=== PATIENT | male | born 1945 | race Caucasian/White ===

== ENCOUNTER 2017-06-29 10:47 | Inpatient (IN) | payer MEDICARE ==
[2017-06-29] MEDS ORDERED: ONDANSETRON 4 MG/2 ML VIAL IVP STA (11:29)
[2017-06-29] MEDS ORDERED: SODIUM CHLORIDE 0.9% 1,000 ML IV STA (11:29)
[2017-06-29] MEDS ORDERED: HYDROmorphone 1 MG/ML 1 ML SYRINGE IVP STA ×2 (11:29→14:47)
[2017-06-29] MEDS ORDERED: PANTOPRAZOLE 40 MG/10 ML VIAL IVP STA (11:29)
[2017-06-29 12:13] LABS: Basophils % (A) 0 %; CH 32.4; CHCM 35.9; Eosinophils # (A) 0.1 k/uL (0-0.7); Eosinophils % (A) 2 %; HCT 35.7 % (39.0-53.0); HDW 3.22; HGB 12.5 gm/dL (13.0-17.5); Luc % (Auto) 2; Lymphocytes # (A) 1.5 k/uL (1.0-4.8); Lymphocytes % (A) 18 %; MCH 31.8 pg (25.0-35.0); MCV 90.7 fL (80.0-100.0); Mean Platelet Volume 7.9; Monocytes # (A) 0.5 k/uL (0-1.0); Monocytes % (A) 6 %; Neutrophils # (A) 6.1 k/uL (1.3-7.7); Neutrophils % (A) 73 %; RBC 3.94 m/uL (4.30-5.90); RDW 12.6 % (11.5-15.5); WBC 8.4 k/uL (3.8-10.6); WBC (Perox) 8.33
[2017-06-29 12:16] LABS: ALT 200 U/L (21-72); AST 354 U/L (17-59); Alkaline Phosphatase 384 U/L (38-126); Amylase <30 U/L (30-110); Anion Gap 11 mmol/L; Blood Urea Nitrogen 19 mg/dL (9-20); Calcium 9.6 mg/dL (8.4-10.2); Carbon Dioxide 24 mmol/L (22-30); Chloride 107 mmol/L (98-107); Glucose 128 mg/dL (74-99); Non-African American GFR(MDRD) >60 (>60 ml/min/1.73 sqM); Sodium 142 mmol/L (137-145); Total Bilirubin 1.7 mg/dL (0.2-1.3); Total Protein 6.4 g/dL (6.3-8.2)
[2017-06-29 12:31] LABS: Creatine Kinase 28 U/L (55-170)
[2017-06-29 12:42] LABS: Partial Thromboplastin Time 21.8 sec (22.0-30.0); Prothrombin Time 10.6 sec (9.0-12.0)
[2017-06-29 12:44] LABS: Creatine Kinase MB 0.3 ng/mL (0.0-2.4); Troponin I <0.012 ng/mL (0.000-0.034)
--- NOTE | 2017-06-29 13:19 | XR ---
EXAMINATION TYPE: XR abdomen acute w cxr DATE OF EXAM: 06/29/2017 COMPARISON: NONE HISTORY: Pain TECHNIQUE: Single view of the chest and 2 views of the abdomen are submitted. FINDINGS: Single view of the chest fails demonstrate evidence for acute pulmonary disease. There is no evidence for pneumoperitoneum. The bowel gas pattern is unremarkable as there is air throughout nondilated small and large bowel. No sizeable air fluid levels.No mass effects are seen. No unusual calcifications. IMPRESSION: 1. Unremarkable study.
--- NOTE | 2017-06-29 13:53 | ED ---
Abdominal Pain HPI - General Chief Complaint: Abdominal Pain Stated Complaint: epigastric pain x 2 days Time Seen by Provider: 06/29/17 11:24 Source: patient Mode of arrival: ambulatory Limitations: no limitations - History of Present Illness Initial Comments: This 71-year-old white male presents complaining of abdominal pain which is in the midepigastric region and will radiate to the bilateral upper quadrants. It is been intermittent over the past 3 days. It is been associated with some nausea. He denies any fevers or chills. He denies any pain in his chest or shortness of breath. He denies any previous gallbladder problems. He does not drink alcohol and denies any previous pancreatitis. He states that the pain is fairly severe in nature. It seems to come on after eating. No other complaints or modifying factors. - Related Data Home Medications Medication Instructions Recorded Confirmed Aspirin [Adult Low Dose Aspirin EC] 81 mg PO HS 06/29/17 06/29/17 Atenolol 25 mg PO HS 06/29/17 06/29/17 Atorvastatin [Lipitor] 80 mg PO HS 06/29/17 06/29/17 Elviteg/Clare/Emtric/Tenofo Ala 1 tab PO HS 06/29/17 06/29/17 [Genvoya Tablet] Omeprazole 20 mg PO HS 06/29/17 06/29/17 PARoxetine [Paxil] 20 mg PO HS 06/29/17 06/29/17 amLODIPine [Norvasc] 5 mg PO HS 06/29/17 06/29/17 diphenhydrAMINE HCL [Benadryl] 25 mg PO HS PRN 06/29/17 06/29/17 Allergies Allergy/AdvReac Type Severity Reaction Status Date / Time No Known Allergies Allergy Verified 06/29/17 11:48 Review of Systems ROS Statement: Those systems with pertinent positive or pertinent negative responses have been documented in the HPI. ROS Other: All systems not noted in ROS Statement are negative. Past Medical History Past Medical History: Hyperlipidemia, Hypertension, Myocardial Infarction ([place]) Additional Past Medical History / Comment(s): AIDS Past Surgical History: Coronary Bypass/CABG, Heart Catheterization, Heart Catheterization With Stent, Prostate Surgery, Tonsillectomy Additional Past Surgical History / Comment(s): vasectomy Past Psychological History: Depression Smoking Status: Never smoker Past Alcohol Use History: None Reported Past Drug Use History: None Reported General Exam - General Exam Comments Initial Comments: GENERAL: The patient is well nourished and well hydrated. VITAL SIGNS: Heart rate, blood pressure, respiratory rate reviewed as recorded in nurse's notes. EYES: Pupils are round and reactive. Extraocular movements are intact. No conjunctival / lid redness or swelling. ENT: No external evidence of injury, swelling, or ecchymosis. Airway is patent. Throat is clear. NECK: Nontender. No swelling or evidence of injury. No subcutaneous emphysema. Trachea is midline. No thyroid mass. HEART: Regular rate and rhythm. Good peripheral pulses. LUNGS/CHEST: Breath sounds clear and equal bilaterally. No rales, rhonchi, or wheezes. No ecchymosis, subcutaneous emphysema, or tenderness. ABDOMEN: There is some tenderness present in the midepigastric region of the abdomen. No palpable masses or organomegaly. No peritoneal signs. No abdominal wall swelling or ecchymosis. EXTREMITIES: No extremity tenderness. Normal muscle tone and function. No thoracolumbar tenderness. NEUROLOGIC: Sensation is grossly intact. Cranial nerve exam reveals face is symmetrical, tongue is midline, speech is clear. SKIN: No abrasions or ecchymosis is noted. No induration or masses noted. PSYCHIATRIC: Alert and oriented. Appropriate behavior and judgment. Limitations: no limitations Course Vital Signs 06/29/17 06/29/17 06/29/17 11:04 12:05 13:00 Temperature 96.8 F L Pulse Rate 61 52 L 57 L Respiratory 17 18 18 Rate Blood Pressure 136/75 175/92 162/88 O2 Sat by Pulse 97 97 Oximetry 06/29/17 06/29/17 06/29/17 14:00 15:00 16:00 Temperature Pulse Rate 55 L 77 57 L Respiratory 18 18 20 Rate Blood Pressure 182/87 159/84 158/97 O2 Sat by Pulse 97 97 97 Oximetry Medical Decision Making - Medical Decision Making The patient was seen and examined. All diagnostics were reviewed. The EKG shows a sinus bradycardia at a rate of 53. There is no acute ST-T wave changes identified. The IA interval is 162, QRS duration is 102, and the QTc interval is 412. The patient had a x-ray of the chest and abdomen and this does not show any acute processes. The laboratory shows significant elevation of the liver function studies. He receives IV Dilaudid and Zofran for pain and nausea and is much improved on recheck. The ultrasound of the abdomen does feel significant gallbladder sludge as well as some thickening of the gallbladder wall consistent with cholecystitis. The patient's pain does come back significantly and he receives additional Dilaudid with control. It is felt as though he would require admission to the hospital for further surgical evaluation and treatment. The case is discussed with Dr. Boykin and she is agreeable with admission. - Lab Data Result diagrams: 06/29/17 11:55 06/29/17 11:55 Lab Results 06/29/17 06/29/17 06/29/17 Range/Units 11:55 11:55 11:55 WBC 8.4 (3.8-10.6) k/uL RBC 3.94 L (4.30-5.90) m/uL Hgb 12.5 L (13.0-17.5) gm/dL Hct 35.7 L (39.0-53.0) % MCV 90.7 (80.0-100.0) fL MCH 31.8 (25.0-35.0) pg MCHC 35.0 (31.0-37.0) g/dL RDW 12.6 (11.5-15.5) % Plt Count 177 (150-450) k/uL Neutrophils % 73 % Lymphocytes % 18 % Monocytes % 6 % Eosinophils % 2 % Basophils % 0 % Neutrophils # 6.1 (1.3-7.7) k/uL Lymphocytes # 1.5 (1.0-4.8) k/uL Monocytes # 0.5 (0-1.0) k/uL Eosinophils # 0.1 (0-0.7) k/uL Basophils # 0.0 (0-0.2) k/uL PT (9.0-12.0) sec INR (<1.2) APTT (22.0-30.0) sec Sodium 142 (137-145) mmol/L Potassium 4.0 (3.5-5.1) mmol/L Chloride 107 (98-107) mmol/L Carbon Dioxide 24 (22-30) mmol/L Anion Gap 11 mmol/L BUN 19 (9-20) mg/dL Creatinine 1.16 (0.66-1.25) mg/dL Est GFR (MDRD) Af Amer >60 (>60 ml/min/1.73 sqM) Est GFR (MDRD) Non-Af >60 (>60 ml/min/1.73 sqM) Glucose 128 H (74-99) mg/dL Plasma Lactic Acid Pierre (0.7-2.0) mmol/L Calcium 9.6 (8.4-10.2) mg/dL Total Bilirubin 1.7 H (0.2-1.3) mg/dL AST 354 H (17-59) U/L ALT 200 H (21-72) U/L Alkaline Phosphatase 384 H (38-126) U/L Total Creatine Kinase 28 L (55-170) U/L CK-MB (CK-2) 0.3 (0.0-2.4) ng/mL CK-MB (CK-2) Rel Index 1.1 Troponin I <0.012 (0.000-0.034) ng/mL Total Protein 6.4 (6.3-8.2) g/dL Albumin 3.7 (3.5-5.0) g/dL Amylase <30 L (30-110) U/L Lipase 110 (23-300) U/L Blood Type Blood Type Recheck Antibody Screen Spec Expiration Date 06/29/17 06/29/17 06/29/17 Range/Units 11:55 11:55 11:55 WBC (3.8-10.6) k/uL RBC (4.30-5.90) m/uL Hgb (13.0-17.5) gm/dL Hct (39.0-53.0) % MCV (80.0-100.0) fL MCH (25.0-35.0) pg MCHC (31.0-37.0) g/dL RDW (11.5-15.5) % Plt Count (150-450) k/uL Neutrophils % % Lymphocytes % % Monocytes % % Eosinophils % % Basophils % % Neutrophils # (1.3-7.7) k/uL Lymphocytes # (1.0-4.8) k/uL Monocytes # (0-1.0) k/uL Eosinophils # (0-0.7) k/uL Basophils # (0-0.2) k/uL PT 10.6 (9.0-12.0) sec INR 1.0 (<1.2) APTT 21.8 L (22.0-30.0) sec Sodium (137-145) mmol/L Potassium (3.5-5.1) mmol/L Chloride (98-107) mmol/L Carbon Dioxide (22-30) mmol/L Anion Gap mmol/L BUN (9-20) mg/dL Creatinine (0.66-1.25) mg/dL Est GFR (MDRD) Af Amer (>60 ml/min/1.73 sqM) Est GFR (MDRD) Non-Af (>60 ml/min/1.73 sqM) Glucose (74-99) mg/dL Plasma Lactic Acid Pierre 1.2 (0.7-2.0) mmol/L Calcium (8.4-10.2) mg/dL Total Bilirubin (0.2-1.3) mg/dL AST (17-59) U/L ALT (21-72) U/L Alkaline Phosphatase (38-126) U/L Total Creatine Kinase (55-170) U/L CK-MB (CK-2) (0.0-2.4) ng/mL CK-MB (CK-2) Rel Index Troponin I (0.000-0.034) ng/mL Total Protein (6.3-8.2) g/dL Albumin (3.5-5.0) g/dL Amylase (30-110) U/L Lipase (23-300) U/L Blood Type A Positive Blood Type Recheck A Pos Antibody Screen NEGATIVE Spec Expiration Date 07/02/20172354 Disposition Clinical Impression: Abdominal pain, Nausea, Transaminitis, Acute cholecystitis, Thickening of wall of gallbladder, Gallbladder sludge, Hypertension, Anemia Disposition: ADMITTED IP TO THIS [facility] Condition: Fair Time of Disposition: 16:32 Decision Date: 06/29/17 Decision Time: 16:32
--- NOTE | 2017-06-29 15:25 | US ---
EXAMINATION TYPE: US gallbladder DATE OF EXAM: 06/29/2017 COMPARISON: NONE CLINICAL HISTORY: Pain. EC patient with epigastric pain after meals EXAM MEASUREMENTS: Liver Length: 15.8 cm Gallbladder Wall: 0.29 cm CBD: 0.55 cm Right Kidney: 11.4 x 5.4 x 5.2 cm Pancreas: hyperechoic Liver: no masses seen Gallbladder: nonmobile sludge in neck and mid; wall thickness at upper limits of normal Evidence for sonographic Acevedo's sign: tender here CBD: wnl Right Kidney: No hydronephrosis or masses seen There is no ascites. IMPRESSION: Tumefactive sludge within the gallbladder, gallbladder appears somewhat hydropic with bor derline wall thickness, correlate for cholecystitis
[2017-06-29] MEDS ORDERED: AMPICILLIN-SULBACTAM 3 GM in SODIUM CHLORIDE 0.9% 100 ML IVPB STA (16:00)
[2017-06-29] MEDS ORDERED: NALOXONE 0.4 MG/ML 1 ML VIAL IV PRN (16:23)
[2017-06-29] MEDS ORDERED: diphenhydrAMINE 25 MG CAP PO PRN (16:29)
[2017-06-29 16:51] LABS: Appearance,Urine Clear (Clear); Bacteria,Urine Rare /hpf; Bilirubin,Urine Negative (Negative); Glucose,Urine (UA) Trace (Negative); Ketones,Urine Negative (Negative); Leukocyte Esterase,Urine Trace (Negative); Nitrite,Urine Negative (Negative); Particle Count 1066; Protein,Urine Negative (Negative); RBC,Urine 1 /hpf (0-5); Specific Gravity,Urine 1.011 (1.001-1.035); UA Billing (MACRO vs. MICRO) MICRO; Urobilinogen,Urine <2.0 mg/dL (<2.0); WBC,Urine 5 /hpf (0-5)
[2017-06-29] MEDS: HYDROmorphone 1 MG/ML 1 ML SYRINGE IV PRN ×2 (17:28→20:16)
[2017-06-29] MEDS: HYDROcodone/APAP 5-325MG 1 EACH TAB PO PRN (19:07)
[2017-06-29 20:06] VITALS: BMI 29.5
[2017-06-29] MEDS: ASPIRIN 81 MG CHEW PO SCH (20:11)
[2017-06-29] MEDS: ATENOLOL 25 MG TAB PO SCH (20:11)
[2017-06-29] MEDS: amLODIPine 5 MG TAB PO SCH (20:11)
[2017-06-29] MEDS: ATORVASTATIN 80 MG TAB PO SCH (20:11)
[2017-06-29] MEDS: PARoxetine 20 MG TAB PO SCH (20:11)
[2017-06-30] MEDS: HYDROmorphone 1 MG/ML 1 ML SYRINGE IV PRN ×3 (00:06→08:20)
[2017-06-30] MEDS: AMPICILLIN-SULBACTAM 3 GM in SODIUM CHLORIDE 0.9% 100 ML IVPB SCH ×5 (00:07→21:56)
[2017-06-30 07:39] LABS: Basophils % (A) 0 %; CH 31.9; CHCM 34.4; Eosinophils # (A) 0.1 k/uL (0-0.7); Eosinophils % (A) 2 %; HCT 35.8 % (39.0-53.0); HDW 3.21; HGB 12.5 gm/dL (13.0-17.5); Luc # (Auto) 0.14; Luc % (Auto) 2; Lymphocytes # (A) 1.1 k/uL (1.0-4.8); Lymphocytes % (A) 16 %; MCH 32.4 pg (25.0-35.0); MCHC 34.9 g/dL (31.0-37.0); MCV 93.1 fL (80.0-100.0); Mean Platelet Volume 7.7; Monocytes # (A) 0.5 k/uL (0-1.0); Monocytes % (A) 7 %; Neutrophils % (A) 73 %; RBC 3.85 m/uL (4.30-5.90); RDW 12.6 % (11.5-15.5); WBC 6.9 k/uL (3.8-10.6); WBC (Perox) 7.27
[2017-06-30 07:47] LABS: ALT 204 U/L (21-72); AST 147 U/L (17-59); Alkaline Phosphatase 431 U/L (38-126); Anion Gap 11 mmol/L; Bilirubin, Delta 1.6 mg/dL (0.0-0.2); Blood Urea Nitrogen 10 mg/dL (9-20); Calcium 8.9 mg/dL (8.4-10.2); Carbon Dioxide 22 mmol/L (22-30); Chloride 108 mmol/L (98-107); Glucose 110 mg/dL (74-99); Non-African American GFR(MDRD) >60 (>60 ml/min/1.73 sqM); Potassium 4.1 mmol/L (3.5-5.1); Sodium 141 mmol/L (137-145); Total Bilirubin 3.6 mg/dL (0.2-1.3); Total Protein 6.2 g/dL (6.3-8.2)
[2017-06-30] MEDS: ENOXAPARIN 40 MG/0.4 ML SYRINGE SQ SCH (08:18)
[2017-06-30] MEDS: PANTOPRAZOLE 40 MG/10 ML VIAL IV SCH (08:21)
--- NOTE | 2017-06-30 10:25 | P.GSHP ---
<Meghana Tan - Last Filed: 06/30/17 11:27> History of Present Illness H&P Date: 06/30/17 Chief Complaint: epigastric pain 71-year-old gentleman who presented on the day of admission to the emergency room to be evaluated for a chief complaint of developing mid epigastric pain radiating to the bilateral upper quadrants onset 3 days prior patient stated he noted the symptoms to occur after eating a high-fat diet on Wednesday shortly after eating developed the discomfort the pain continued to persist. Patient stated he did feel nauseated did not vomit. Patient stated the pain was fairly severe in nature. It did seem to come on more intensely after eating a high- fat diet. Patient denies any fever chills. Patient denied any prior episodes. Patient states he does not drink alcohol. gives no history of prior pancreatitis. Patient states that he is recuperating from prostate cancer June 08 at [facility] in [place] did undergo a prostatectomy. Postop has had episodes of leaking urine. Additionally patient states he was diagnosed in 1996 HIV which has been in remission and is being [facility] Dr[facility] Briscoe currently resting in bed states he just received IV pain medication which has been effective for pain control patient reports no change in bowel habits no loose stool no constipation. The patient did undergo abdominal ultrasound showed significant gallbladder sludge as well as thickening of the gallbladder wall consistent with cholecystitis. The labs studies were elevated AST 147, on admission it was 354. The ALT 204 this morning 200 on admission alk phos elevated at 431 total bili 3.6 is up this morning. Lipase 110. Amylase less than 30. Patient does give a history of coronary artery disease in 1999 underwent coronary artery bypass grafting. Patient states he has not been experiencing any chest pain any shortness of breath he is denying. - Review of Systems Comment: Intervention unremarkable except as mentioned in the present illness Past Medical History Past Medical History: Hyperlipidemia, Hypertension, Myocardial Infarction ([place]) Additional Past Medical History / Comment(s): AIDS Last Myocardial Infarction Date:: 1999 History of Any Multi-Drug Resistant Organisms: None Reported Past Surgical History: Coronary Bypass/CABG, Heart Catheterization, Heart Catheterization With Stent, Prostate Surgery, Tonsillectomy Additional Past Surgical History / Comment(s): vasectomy Date of Last Stent Placement:: none Past Psychological History: Depression Smoking Status: Never smoker Past Alcohol Use History: None Reported Past Drug Use History: None Reported Medications and Allergies Home Medications Medication Instructions Recorded Confirmed Type Aspirin [Adult Low Dose Aspirin EC] 81 mg PO HS 06/29/17 06/29/17 History Atenolol 25 mg PO HS 06/29/17 06/29/17 History Atorvastatin [Lipitor] 80 mg PO HS 06/29/17 06/29/17 History Elviteg/Clare/Emtric/Tenofo Ala 1 tab PO HS 06/29/17 06/29/17 History [Genvoya Tablet] Omeprazole 20 mg PO HS 06/29/17 06/29/17 History PARoxetine [Paxil] 20 mg PO HS 06/29/17 06/29/17 History amLODIPine [Norvasc] 5 mg PO HS 06/29/17 06/29/17 History diphenhydrAMINE HCL [Benadryl] 25 mg PO HS PRN 06/29/17 06/29/17 History Allergies Allergy/AdvReac Type Severity Reaction Status Date / Time No Known Allergies Allergy Verified 06/29/17 11:48 Surgical - Exam Vital Signs Temp Pulse Resp BP Pulse Ox 96.8 F L 61 17 136/75 97 06/29/17 11:04 06/29/17 11:04 06/29/17 11:04 06/29/17 11:04 06/29/17 11:04 GENERAL APPEARANCE: 71-year-old male patient is alert, oriented, in no acute distress. VITAL SIGNS: Reviewed HEENT: Head is normocephalic and atraumatic. Pupils are equal and reactive. The nares are patent. Oropharynx is clear without lesions. NECK: Supple without lymphadenopathy. Traches midline. HEART: S1, S2. Regular rate and rhythm. Denying chest pain LUNGS: No crackles or wheezes are heard. Adequate air entry ABDOMEN: Soft, diffuse tenderness across the upper abdominal wall nondistended with good bowel sounds. No peritoneal signs. No palpable organomegaly or masses. Reports no nausea vomiting EXTREMITIES: Normal skin color and turgor. No cyanosis, rash, ulceration, clubbing or edema. Radial pedal pulses are 2/4 bilaterally. NEUROLOGICAL: No focal deficits. Strength and sensation are grossly intact. Results - Labs 06/30/17 06:49 06/30/17 06:47 Abnormal Lab Results - Last 24 Hours (Table) 06/29/17 06/29/17 06/29/17 Range/Units 11:55 11:55 11:55 RBC 3.94 L (4.30-5.90) m/uL Hgb 12.5 L (13.0-17.5) gm/dL Hct 35.7 L (39.0-53.0) % APTT (22.0-30.0) sec Chloride (98-107) mmol/L Glucose 128 H (74-99) mg/dL Total Bilirubin 1.7 H (0.2-1.3) mg/dL Conjugated Bilirubin (0.0-0.3) mg/dL Delta Bilirubin (0.0-0.2) mg/dL AST 354 H (17-59) U/L ALT 200 H (21-72) U/L Alkaline Phosphatase 384 H (38-126) U/L Total Creatine Kinase 28 L (55-170) U/L Total Protein (6.3-8.2) g/dL Amylase <30 L (30-110) U/L Urine Glucose (UA) (Negative) Ur Leukocyte Esterase (Negative) Urine Bacteria (None) /hpf Urine Yeast (Budding) (None) /hpf 06/29/17 06/29/17 06/30/17 Range/Units 11:55 16:44 06:47 RBC (4.30-5.90) m/uL Hgb (13.0-17.5) gm/dL Hct (39.0-53.0) % APTT 21.8 L (22.0-30.0) sec Chloride 108 H (98-107) mmol/L Glucose 110 H (74-99) mg/dL Total Bilirubin 3.6 H (0.2-1.3) mg/dL Conjugated Bilirubin 1.1 H (0.0-0.3) mg/dL Delta Bilirubin 1.6 H (0.0-0.2) mg/dL AST 147 H (17-59) U/L ALT 204 H (21-72) U/L Alkaline Phosphatase 431 H (38-126) U/L Total Creatine Kinase (55-170) U/L Total Protein 6.2 L (6.3-8.2) g/dL Amylase (30-110) U/L Urine Glucose (UA) Trace H (Negative) Ur Leukocyte Esterase Trace H (Negative) Urine Bacteria Rare H (None) /hpf Urine Yeast (Budding) Occasional H (None) /hpf 06/30/17 Range/Units 06:49 RBC 3.85 L (4.30-5.90) m/uL Hgb 12.5 L (13.0-17.5) gm/dL Hct 35.8 L (39.0-53.0) % APTT (22.0-30.0) sec Chloride (98-107) mmol/L Glucose (74-99) mg/dL Total Bilirubin (0.2-1.3) mg/dL Conjugated Bilirubin (0.0-0.3) mg/dL Delta Bilirubin (0.0-0.2) mg/dL AST (17-59) U/L ALT (21-72) U/L Alkaline Phosphatase (38-126) U/L Total Creatine Kinase (55-170) U/L Total Protein (6.3-8.2) g/dL Amylase (30-110) U/L Urine Glucose (UA) (Negative) Ur Leukocyte Esterase (Negative) Urine Bacteria (None) /hpf Urine Yeast (Budding) (None) /hpf Diabetes panel 06/29/17 06/30/17 Range/Units 11:55 06:47 Sodium 142 141 (137-145) mmol/L Potassium 4.0 4.1 (3.5-5.1) mmol/L Chloride 107 108 H (98-107) mmol/L Carbon Dioxide 24 22 (22-30) mmol/L BUN 19 10 (9-20) mg/dL Creatinine 1.16 0.90 (0.66-1.25) mg/dL Glucose 128 H 110 H (74-99) mg/dL Calcium 9.6 8.9 (8.4-10.2) mg/dL AST 354 H 147 H (17-59) U/L ALT 200 H 204 H (21-72) U/L Alkaline Phosphatase 384 H 431 H (38-126) U/L Total Protein 6.4 6.2 L (6.3-8.2) g/dL Albumin 3.7 3.5 (3.5-5.0) g/dL Calcium panel 06/29/17 06/30/17 Range/Units 11:55 06:47 Calcium 9.6 8.9 (8.4-10.2) mg/dL Albumin 3.7 3.5 (3.5-5.0) g/dL Pituitary panel 06/29/17 06/30/17 Range/Units 11:55 06:47 Sodium 142 141 (137-145) mmol/L Potassium 4.0 4.1 (3.5-5.1) mmol/L Chloride 107 108 H (98-107) mmol/L Carbon Dioxide 24 22 (22-30) mmol/L BUN 19 10 (9-20) mg/dL Creatinine 1.16 0.90 (0.66-1.25) mg/dL Glucose 128 H 110 H (74-99) mg/dL Calcium 9.6 8.9 (8.4-10.2) mg/dL Adrenal panel 06/29/17 06/30/17 Range/Units 11:55 06:47 Sodium 142 141 (137-145) mmol/L Potassium 4.0 4.1 (3.5-5.1) mmol/L Chloride 107 108 H (98-107) mmol/L Carbon Dioxide 24 22 (22-30) mmol/L BUN 19 10 (9-20) mg/dL Creatinine 1.16 0.90 (0.66-1.25) mg/dL Glucose 128 H 110 H (74-99) mg/dL Calcium 9.6 8.9 (8.4-10.2) mg/dL Total Bilirubin 1.7 H 3.6 H (0.2-1.3) mg/dL AST 354 H 147 H (17-59) U/L ALT 200 H 204 H (21-72) U/L Alkaline Phosphatase 384 H 431 H (38-126) U/L Total Protein 6.4 6.2 L (6.3-8.2) g/dL Albumin 3.7 3.5 (3.5-5.0) g/dL Assessment and Plan Plan: Impression Present on admission abdominal pain midepigastric radiating to the bilateral upper quadrants suspect due to acute cholecystitis Ultrasound of the abdomen shows gallbladder wall thickening gallbladder sludge Elevated transaminitis elevated AST, ALT, and total bilirubin History of coronary artery disease prior coronary artery bypass grafting 1999 recent prostatectomy for prostate cancer done on June 08 history of HIV in remission Plan Pain control NPO for planned ERCP at 1:00 today per GIs recommendations family updated on plan Resume home meds as appropriate IV fluid for hydration DVT and GI prophylaxis hold Lovenox until seen by GI service Further recommendations pending The above impression and plan of care have been discussed and directed by signing physician. Meghana Tan nurse practitioner acting as scribe for signing physician. <Victorina Boykin N - Last Filed: 06/30/17 17:37> Surgical - Exam Vital Signs Temp Pulse Resp BP Pulse Ox 96.8 F L 61 17 136/75 97 06/29/17 11:04 06/29/17 11:04 06/29/17 11:04 06/29/17 11:04 06/29/17 11:04 Results - Labs 06/30/17 06:49 06/30/17 06:47 Abnormal Lab Results - Last 24 Hours (Table) 06/30/17 06/30/17 Range/Units 06:47 06:49 RBC 3.85 L (4.30-5.90) m/uL Hgb 12.5 L (13.0-17.5) gm/dL Hct 35.8 L (39.0-53.0) % Chloride 108 H (98-107) mmol/L Glucose 110 H (74-99) mg/dL Total Bilirubin 3.6 H (0.2-1.3) mg/dL Conjugated Bilirubin 1.1 H (0.0-0.3) mg/dL Delta Bilirubin 1.6 H (0.0-0.2) mg/dL AST 147 H (17-59) U/L ALT 204 H (21-72) U/L Alkaline Phosphatase 431 H (38-126) U/L Total Protein 6.2 L (6.3-8.2) g/dL Diabetes panel 06/30/17 Range/Units 06:47 Sodium 141 (137-145) mmol/L Potassium 4.1 (3.5-5.1) mmol/L Chloride 108 H (98-107) mmol/L Carbon Dioxide 22 (22-30) mmol/L BUN 10 (9-20) mg/dL Creatinine 0.90 (0.66-1.25) mg/dL Glucose 110 H (74-99) mg/dL Calcium 8.9 (8.4-10.2) mg/dL AST 147 H (17-59) U/L ALT 204 H (21-72) U/L Alkaline Phosphatase 431 H (38-126) U/L Total Protein 6.2 L (6.3-8.2) g/dL Albumin 3.5 (3.5-5.0) g/dL Calcium panel 06/30/17 Range/Units 06:47 Calcium 8.9 (8.4-10.2) mg/dL Albumin 3.5 (3.5-5.0) g/dL Pituitary panel 06/30/17 Range/Units 06:47 Sodium 141 (137-145) mmol/L Potassium 4.1 (3.5-5.1) mmol/L Chloride 108 H (98-107) mmol/L Carbon Dioxide 22 (22-30) mmol/L BUN 10 (9-20) mg/dL Creatinine 0.90 (0.66-1.25) mg/dL Glucose 110 H (74-99) mg/dL Calcium 8.9 (8.4-10.2) mg/dL Adrenal panel 06/30/17 Range/Units 06:47 Sodium 141 (137-145) mmol/L Potassium 4.1 (3.5-5.1) mmol/L Chloride 108 H (98-107) mmol/L Carbon Dioxide 22 (22-30) mmol/L BUN 10 (9-20) mg/dL Creatinine 0.90 (0.66-1.25) mg/dL Glucose 110 H (74-99) mg/dL Calcium 8.9 (8.4-10.2) mg/dL Total Bilirubin 3.6 H (0.2-1.3) mg/dL AST 147 H (17-59) U/L ALT 204 H (21-72) U/L Alkaline Phosphatase 431 H (38-126) U/L Total Protein 6.2 L (6.3-8.2) g/dL Albumin 3.5 (3.5-5.0) g/dL Assessment and Plan Plan: Patient seen and evaluated alongside [employer]. Patient had been scheduled for an ERCP regarding elevated total bilirubin levels including liver enzymes. Chemistries highly consistent with choledocholithiasis. Will likely need inpatient cholecystectomy. I did review with the family that I will be unavailable starting tomorrow. Hope surgical to continue his care in my absence.
--- NOTE | 2017-06-30 11:10 | P.CONS ---
History of Present Illness - Reason for Consult Consult date: 06/30/17 Elevated liver enzymes Requesting physician: Victorina Boykin - History of Present Illness 71-year-old gentleman admitted with acute epigastric pain upper abdomen 3 days exacerbated with meals. Past medical history of HIV (1996), CT, CAD/CABG, hyperlipidemia, and hypertension. Consultation requested for elevated liver enzymes. Admission white count 8.4. Hemoglobin 12.5. INR 1.0. Platelet 177. Ultrasound abdomen tumefactive sludge hydropic borderline wall thickness 0.3 cm. CBD 0.5 cm. No masses seen in the liver. No intrahepatic biliary dilatation mentioned. No ascites. Total bilirubin 1.7 increased to 3.6. Conjugated 1.1. AST 354 presently 147. ALT 200 presently 204. Alkaline phosphates 384 present 431. Amylase less than 30. Lipase 110. Scheduled for endoscopic cholecystectomy today however canceled secondary to elevated total bilirubin. No history of ETOH abuse or hepatitis. Denies changes in the color of his stool or urine. No medication changes. Review of Systems Constitutional: Denies fever, chills, sweats, weight gain, or loss. HEENT: Negative for migraines, blurred vision or loss, earaches, drainage, tinnitus, oral mucosal lesions, dysphagia, or odynophagia. Cardiac: CAD. CABG. CT. HTN. Hyperlipidemia. Negative for chest pain, arrhythmias, or palpitation. Respiratory: Negative for shortness of breath, hemoptysis, cough, or sputum production. Gastrointestinal: See HPI for pertinent findings. Genitourinary: Negative for hematuria, urgency, frequency, polyuria, dysuria, or penile discharge. Musculoskeletal: Negative for muscle aches, swelling, arthritis, and arthralgias. Neurologic: Negative for stroke or TIA. Endocrine: Negative for thyroid problems. Skin: Negative for rash or itching. Psychiatric: Negative history for depression and anxiety Past Medical History Past Medical History: Hyperlipidemia, Hypertension, Myocardial Infarction (CT) Additional Past Medical History / Comment(s): AIDS Last Myocardial Infarction Date:: 1999 History of Any Multi-Drug Resistant Organisms: None Reported Past Surgical History: Coronary Bypass/CABG, Heart Catheterization, Heart Catheterization With Stent, Prostate Surgery, Tonsillectomy Additional Past Surgical History / Comment(s): vasectomy Date of Last Stent Placement:: none Past Psychological History: Depression Smoking Status: Never smoker Past Alcohol Use History: None Reported Past Drug Use History: None Reported Medications and Allergies Home Medications Medication Instructions Recorded Confirmed Type Aspirin [Adult Low Dose Aspirin EC] 81 mg PO HS 06/29/17 06/29/17 History Atenolol 25 mg PO HS 06/29/17 06/29/17 History Atorvastatin [Lipitor] 80 mg PO HS 06/29/17 06/29/17 History Elviteg/Clare/Emtric/Tenofo Ala 1 tab PO HS 06/29/17 06/29/17 History [Genvoya Tablet] Omeprazole 20 mg PO HS 06/29/17 06/29/17 History PARoxetine [Paxil] 20 mg PO HS 06/29/17 06/29/17 History amLODIPine [Norvasc] 5 mg PO HS 06/29/17 06/29/17 History diphenhydrAMINE HCL [Benadryl] 25 mg PO HS PRN 06/29/17 06/29/17 History Allergies Allergy/AdvReac Type Severity Reaction Status Date / Time No Known Allergies Allergy Verified 06/29/17 11:48 Physical Exam Vitals: Vital Signs Temp Pulse Pulse Resp BP BP Pulse Ox 06/30/17 07:00 98.6 F 61 12 133/79 93 L 06/30/17 05:45 98.8 F 73 16 152/84 93 L 06/29/17 18:15 69 18 179/86 96 06/29/17 17:53 97.0 F L 70 16 175/99 96 06/29/17 17:00 55 L 20 170/92 96 06/29/17 16:00 57 L 20 158/97 97 06/29/17 15:00 77 18 159/84 97 06/29/17 14:00 55 L 18 182/87 97 06/29/17 13:00 57 L 18 162/88 06/29/17 12:05 52 L 18 175/92 97 06/29/17 11:04 96.8 F L 61 17 136/75 97 Intake and Output 06/29/17 06/30/17 06/30/17 22:59 06:59 14:59 Intake Total 750 1000 Output Total 600 Balance 750 400 Intake: Intake, IV Titration 550 1000 Amount Ampicillin-Sulbactam 3 gm 200 200 In Sodium Chloride 0.9% 100 ml @ 100 mls/hr IVPB Q6H [facility] Rx#:[id number] Sodium Chloride 0.9% 1, 350 800 000 ml @ 100 mls/hr IV . Q10H [facility] Rx#:[id number] Oral 200 0 Output: Urine 600 Other: Voiding Method Toilet # Voids 2 Weight 90.718 kg General appearance: The patient is alert, oriented, in no acute distress. HET: Head is normocephalic and atraumatic. Pupils are equal and reactive. Sclera dull. Oropharynx is clear without lesions. Neck: Supple without lymphadenopathy. Trachea midline. Heart: S1 S2. Regular rate and rhythm. Lungs: No crackles or wheezes are heard. Abdomen: Soft, mild tenderness to midepigastrum, nondistended with bowel sounds. No peritoneal signs. No palpable organomegaly or masses. Extremities: Normal skin color and turgor. No cyanosis, rash, ulceration, clubbing, or edema. Radial and pedal pulses are 2/4 bilaterally. Neurological: No focal deficits. Strength and sensation are grossly intact. Results CBC & Chem 7: 06/30/17 06:49 06/30/17 06:47 Labs: Abnormal Lab Results - Last 24 Hours (Table) 06/29/17 06/29/17 06/29/17 Range/Units 11:55 11:55 11:55 RBC 3.94 L (4.30-5.90) m/uL Hgb 12.5 L (13.0-17.5) gm/dL Hct 35.7 L (39.0-53.0) % APTT (22.0-30.0) sec Chloride (98-107) mmol/L Glucose 128 H (74-99) mg/dL Total Bilirubin 1.7 H (0.2-1.3) mg/dL Conjugated Bilirubin (0.0-0.3) mg/dL Delta Bilirubin (0.0-0.2) mg/dL AST 354 H (17-59) U/L ALT 200 H (21-72) U/L Alkaline Phosphatase 384 H (38-126) U/L Total Creatine Kinase 28 L (55-170) U/L Total Protein (6.3-8.2) g/dL Amylase <30 L (30-110) U/L Urine Glucose (UA) (Negative) Ur Leukocyte Esterase (Negative) Urine Bacteria (None) /hpf Urine Yeast (Budding) (None) /hpf 06/29/17 06/29/17 06/30/17 Range/Units 11:55 16:44 06:47 RBC (4.30-5.90) m/uL Hgb (13.0-17.5) gm/dL Hct (39.0-53.0) % APTT 21.8 L (22.0-30.0) sec Chloride 108 H (98-107) mmol/L Glucose 110 H (74-99) mg/dL Total Bilirubin 3.6 H (0.2-1.3) mg/dL Conjugated Bilirubin 1.1 H (0.0-0.3) mg/dL Delta Bilirubin 1.6 H (0.0-0.2) mg/dL AST 147 H (17-59) U/L ALT 204 H (21-72) U/L Alkaline Phosphatase 431 H (38-126) U/L Total Creatine Kinase (55-170) U/L Total Protein 6.2 L (6.3-8.2) g/dL Amylase (30-110) U/L Urine Glucose (UA) Trace H (Negative) Ur Leukocyte Esterase Trace H (Negative) Urine Bacteria Rare H (None) /hpf Urine Yeast (Budding) Occasional H (None) /hpf 06/30/17 Range/Units 06:49 RBC 3.85 L (4.30-5.90) m/uL Hgb 12.5 L (13.0-17.5) gm/dL Hct 35.8 L (39.0-53.0) % APTT (22.0-30.0) sec Chloride (98-107) mmol/L Glucose (74-99) mg/dL Total Bilirubin (0.2-1.3) mg/dL Conjugated Bilirubin (0.0-0.3) mg/dL Delta Bilirubin (0.0-0.2) mg/dL AST (17-59) U/L ALT (21-72) U/L Alkaline Phosphatase (38-126) U/L Total Creatine Kinase (55-170) U/L Total Protein (6.3-8.2) g/dL Amylase (30-110) U/L Urine Glucose (UA) (Negative) Ur Leukocyte Esterase (Negative) Urine Bacteria (None) /hpf Urine Yeast (Budding) (None) /hpf US - abdomen: report reviewed (Dr. De La Fuente) Assessment and Plan (1) Elevated liver enzymes Narrative/Plan: Possible choledocholithiasis with worsening hyperbilirubinemia. Status: Acute (2) Abdominal pain Status: Acute (3) Gallbladder sludge Status: Acute (4) HIV (human immunodeficiency virus infection) Status: Chronic Plan: 1. ERCP. 2. Hepatitis panel. 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 The patient has indicated understanding and acceptance of the risks and procedures discussed. Thank you for this kind referral and the opportunity to participate in the care of your patient. This consultation was discussed with Dr. De La Fuente. The impression and plan of care have been directed as dictated.
[2017-06-30] MEDS ORDERED: INDOMETHACIN 50MG SUPPOSITORY RECTAL ONE (12:00)
[2017-06-30] MEDS ORDERED: GLYCOPYRROLATE 0.2 MG/ML 2 ML VIAL ONE (14:32)
[2017-06-30] MEDS ORDERED: PROPOFOL 10 MG/ML 20 ML VIAL IV ONE (14:32)
[2017-06-30] MEDS ORDERED: LIDOCAINE 1% INJ 10MG/ML (20 ML MDV) ONE (14:32)
[2017-06-30] MEDS ORDERED: GLUCAGON 1 MG/ML VIAL ONE (14:32)
[2017-06-30] MEDS ORDERED: IV FLUID CONTINUATION 1,000 ML IV ONE (14:35)
[2017-06-30] MEDS ORDERED: IOHEXOL 300 MG/ML 50 ML BOTTLE MISCELLANE ONE (15:01)
[2017-06-30] MEDS ORDERED: LACTATED RINGERS 1,000 ML IV ONE (15:05)
--- NOTE | 2017-06-30 15:12 | P.PCN ---
Date of Procedure: 06/30/17 Preoperative Diagnosis: Postoperative Diagnosis: Procedure(s) Performed: Procedure: Endoscopic retrograde cholangiopancreatography. Preoperative diagnosis: Suspected common bile duct stone. Postoperative diagnosis: Cholelithiasis with no evidence of choledocholithiasis. Preparation sedation: Was provided by anesthesia. Brief clinical history: The patient is a 71-year-old male who was admitted with acute epigastric pain upper abdomen 3 days exacerbated with meals. Past medical history of HIV (1996), [place], CAD/CABG, hyperlipidemia, and hypertension. Patient was noted to have elevated liver enzymes and sludge on his ultrasound. Admission white count 8.4. Hemoglobin 12.5. INR 1.0. Platelet 177. Ultrasound abdomen tumefactive sludge hydropic borderline wall thickness 0.3 cm. CBD 0.5 cm. No masses seen in the liver. No intrahepatic biliary dilatation mentioned. No ascites. Total bilirubin 1.7 increased to 3.6. Conjugated 1.1. AST 354 presently 147. ALT 200 presently 204. Alkaline phosphates 384 present 431. Amylase less than 30. Lipase 110. He was scheduled Scheduled for laparoscopic cholecystectomy today, however, this was canceled because of elevated total bilirubin and we were asked to see him for consideration for ERCP. The details are summarized in the history and physical and dictated consultation and progress notes. Procedure: With the patient in the prone position and after informed consent and adequate sedation, I passed the Olympus video duodenoscope down the esophagus into the stomach then passed it through the pylorus into the duodenum and brought the papilla into view. Initial cannulation and injection with dye resulted in opacification of the pancreatic duct which appeared within normal limits. Subsequently, I was able to selectively cannulate the common bile duct and injected dye. The common bile duct did not appear dilated. There were no filling defects to suggest retained common bile duct stone at this time. The cystic duct was patent and there was dye filling the gallbladder partially and I noted evidence of cholelithiasis under fluoroscopy. Spot films were obtained. No sphincterotomy was indicated. The patient tolerated the procedure well. Plan: The patient was reassured. It is likely that he passed a common bile duct stone. Will allow diet and monitor his counts closely Laparoscopic cholecystectomy as per Dr. Velazquez. We will follow with you with interest. Implants: Indications for Procedure: Operative Findings: Description of Procedure:
--- NOTE | 2017-06-30 15:31 | FL ---
EXAMINATION TYPE: FL ERCP HISTORY: Fluoroscopy time Impression: 1. Fluoroscopy support provided to the referring physician. 2 minutes 55 seconds of fluoroscopy provi ded. No images submitted.
--- NOTE | 2017-06-30 17:36 | P.PN ---
Progress Note - Text Patient seen and reevaluated. ERCP findings consistent with a passed common bile duct stone. I discussed with the family that I will be away, as a result Dr. Jones will assume his surgical care in my absence. Family and patient's questions were answered in detail.
[2017-06-30 20:21] LABS: Hepatitis B Surface Ag Index 0.07
[2017-06-30 20:26] LABS: Hepatitis B Core IgM Index 0.02
[2017-06-30] MEDS: amLODIPine 5 MG TAB PO SCH (20:31)
[2017-06-30] MEDS: ASPIRIN 81 MG CHEW PO SCH (20:32)
[2017-06-30] MEDS: ATENOLOL 25 MG TAB PO SCH (20:32)
[2017-06-30] MEDS: PARoxetine 20 MG TAB PO SCH (20:32)
[2017-06-30] MEDS: ATORVASTATIN 80 MG TAB PO SCH (20:32)
[2017-06-30 20:38] LABS: Hepatitis C Virus IgG Ab Negative (Negative); Hepatitis C Virus IgG Index 0.04
[2017-07-01] MEDS: AMPICILLIN-SULBACTAM 3 GM in SODIUM CHLORIDE 0.9% 100 ML IVPB SCH ×4 (03:29→23:17)
[2017-07-01] MEDS: HYDROmorphone 1 MG/ML 1 ML SYRINGE IV PRN ×7 (03:33→23:18)
[2017-07-01 07:36] LABS: ALT 136 U/L (21-72); AST 76 U/L (17-59); Alkaline Phosphatase 351 U/L (38-126); Anion Gap 10 mmol/L; Blood Urea Nitrogen 10 mg/dL (9-20); Calcium 8.7 mg/dL (8.4-10.2); Carbon Dioxide 22 mmol/L (22-30); Chloride 112 mmol/L (98-107); Glucose 101 mg/dL (74-99); Non-African American GFR(MDRD) >60 (>60 ml/min/1.73 sqM); Potassium 4.1 mmol/L (3.5-5.1); Sodium 144 mmol/L (137-145); Total Bilirubin 3.7 mg/dL (0.2-1.3); Total Protein 5.7 g/dL (6.3-8.2)
[2017-07-01] MEDS: PANTOPRAZOLE 40 MG/10 ML VIAL IV SCH (07:38)
[2017-07-01] MEDS: HYDROcodone/APAP 5-325MG 1 EACH TAB PO PRN ×2 (09:26→15:35)
[2017-07-01 09:29] LABS: Basophils % (A) 0 %; CH 31.5; CHCM 33.7; Eosinophils # (A) 0.1 k/uL (0-0.7); Eosinophils % (A) 1 %; HCT 35.2 % (39.0-53.0); HDW 3.23; Luc # (Auto) 0.18; Luc % (Auto) 3; Lymphocytes # (A) 0.8 k/uL (1.0-4.8); Lymphocytes % (A) 12 %; MCHC 34.1 g/dL (31.0-37.0); MCV 93.9 fL (80.0-100.0); Mean Platelet Volume 8.2; Monocytes # (A) 0.4 k/uL (0-1.0); Monocytes % (A) 6 %; Neutrophils # (A) 5.4 k/uL (1.3-7.7); Neutrophils % (A) 78 %; RBC 3.75 m/uL (4.30-5.90); RDW 12.7 % (11.5-15.5); WBC (Perox) 7.26
--- NOTE | 2017-07-01 10:17 | P.PN ---
<Meghana Tan M - Last Filed: 07/01/17 10:07> Subjective 71-year-old being seen on rounds this morning. Patient did have an ERCP done by GI service yesterday findings were consistent with past common bile duct stone. This morning the patient states that he did eat some eggs after eating the eggs he did develop midepigastric pain. Plan is for the patient undergo a lap cholecystectomy tomorrow per Dr. Jones Labs were reviewed the white count is 7 hemoglobin 12 AST is 136 ALT 351 Objective - Vital Signs Vital signs: Vital Signs Temp 98.3 F 07/01/17 07:34 Pulse 60 07/01/17 07:34 Resp 16 07/01/17 02:51 BP 112/70 07/01/17 07:34 Pulse Ox 94 L 07/01/17 07:34 Intake & Output 06/30/17 07/01/17 07/01/17 18:59 06:59 18:59 Intake Total 1400 2640 Balance 1400 2640 Intake: IV 600 Intake, IV Titration 800 1200 Amount Ampicillin-Sulbactam 3 gm 400 In Sodium Chloride 0.9% 100 ml @ 100 mls/hr IVPB Q6H [facility] Rx#:[id number] IV Fluid Continuation 1, 400 000 ml As IV .[facility] Rx#:[id number] Lactated Ringers 1,000 ml 400 As IV .[facility] Rx#: [id number] Sodium Chloride 0.9% 1, 800 000 ml @ 100 mls/hr IV . Q10H [facility] Rx#:[id number] Oral 1440 Other: Voiding Method Toilet # Voids 2 3 - Exam Physical exam 71-year-old male resting in bed states pain medication effective for pain control Lungs essentially clear on room air sats greater than 95% no cough noted Heart S1-S2 audible and regular denying chest pain Abdomen slight tenderness to the mid epigastric area bowel tones present urinating no difficulty nausea sensation no active emesis Extremities no edema noted - Labs CBC & Chem 7: 07/01/17 06:53 07/01/17 06:53 Labs: Abnormal Lab Results - Last 24 Hours (Table) 07/01/17 07/01/17 Range/Units 06:53 06:53 RBC 3.75 L (4.30-5.90) m/uL Hgb 12.0 L (13.0-17.5) gm/dL Hct 35.2 L (39.0-53.0) % Plt Count 148 L (150-450) k/uL Lymphocytes # 0.8 L (1.0-4.8) k/uL Chloride 112 H (98-107) mmol/L Glucose 101 H (74-99) mg/dL Total Bilirubin 3.7 H (0.2-1.3) mg/dL AST 76 H (17-59) U/L ALT 136 H (21-72) U/L Alkaline Phosphatase 351 H (38-126) U/L Total Protein 5.7 L (6.3-8.2) g/dL Albumin 3.1 L (3.5-5.0) g/dL Assessment and Plan Plan: Impression Present on admission abdominal pain midepigastric radiating to the bilateral upper quadrants suspect due to acute cholecystitis Ultrasound of the abdomen shows gallbladder wall thickening gallbladder sludge Elevated transaminitis elevated AST, ALT, and total bilirubin History of coronary artery disease prior coronary artery bypass grafting 1999 recent prostatectomy for prostate cancer done on June 08 history of HIV in remission Status post ERCP consistent with passing a common bile duct stone done on June 30 Plan Pain control Scheduled for a lap cholecystectomy on July 02 per surgical service Resume home meds as appropriate IV fluid for hydration DVT and GI prophylaxis hold Lovenox until seen by GI service Further recommendations pending Continue the IV Unasyn as ordered The above impression and plan of care have been discussed and directed by signing physician. Meghana Tan nurse practitioner acting as scribe for signing physician. <Malgorzata Jones - Last Filed: 07/02/17 07:38> Subjective Principal diagnosis: Patient examined. Plan for laparoscopic cholecystectomy possible open and liver biopsy as per GI for elvated LFTS. Risks, benefits and potentaial complications discussed and informed consent obtained Objective - Vital Signs Vital signs: Vital Signs Temp 97.7 F 07/02/17 06:56 Pulse 65 07/02/17 06:56 Resp 16 07/02/17 06:56 BP 102/60 07/02/17 06:56 Pulse Ox 95 07/02/17 06:56 Intake & Output 07/01/17 07/02/17 07/02/17 18:59 06:59 18:59 Intake Total 450 525 Balance 450 525 Intake: Intake, IV Titration 450 525 Amount Sodium Chloride 0.9% 1, 450 525 000 ml @ 75 mls/hr IV . [id number] [facility] Rx#:[id number] Other: Voiding Method Toilet # Voids 1 1 - Labs CBC & Chem 7: 07/01/17 06:53 07/01/17 06:53 Labs: Abnormal Lab Results - Last 24 Hours (Table) 07/01/17 07/01/17 Range/Units 06:53 06:53 RBC 3.75 L (4.30-5.90) m/uL Hgb 12.0 L (13.0-17.5) gm/dL Hct 35.2 L (39.0-53.0) % Plt Count 148 L (150-450) k/uL Lymphocytes # 0.8 L (1.0-4.8) k/uL Chloride 112 H (98-107) mmol/L Glucose 101 H (74-99) mg/dL Total Bilirubin 3.7 H (0.2-1.3) mg/dL AST 76 H (17-59) U/L ALT 136 H (21-72) U/L Alkaline Phosphatase 351 H (38-126) U/L Total Protein 5.7 L (6.3-8.2) g/dL Albumin 3.1 L (3.5-5.0) g/dL
--- NOTE | 2017-07-01 10:23 | P.PN ---
<Nai Lewis A - Last Filed: 07/01/17 10:21> Subjective Principal diagnosis: Elevated liver enzymes 71-year-old gentleman admitted with acute epigastric right upper quadrant abdominal pain with tumefactive sludge on ultrasound and elevated liver enzymes suspected choledocholithiasis. Status post ERCP yesterday with no evidence of retained common bile duct stones. Transaminases this morning slightly improved however total bilirubin unchanged 3.7. Abdominal pain still present but improved. Afebrile. Cholecystectomy tentatively plan for tomorrow. Objective - Vital Signs Vital signs: Vital Signs Temp 98.3 F 07/01/17 07:34 Pulse 60 07/01/17 07:34 Resp 16 07/01/17 02:51 BP 112/70 07/01/17 07:34 Pulse Ox 94 L 07/01/17 07:34 Intake & Output 06/30/17 07/01/17 07/01/17 18:59 06:59 18:59 Intake Total 1400 2640 Balance 1400 2640 Intake: IV 600 Intake, IV Titration 800 1200 Amount Ampicillin-Sulbactam 3 gm 400 In Sodium Chloride 0.9% 100 ml @ 100 mls/hr IVPB Q6H [facility] Rx#:[id number] IV Fluid Continuation 1, 400 000 ml As IV .[facility] Rx#:[id number] Lactated Ringers 1,000 ml 400 As IV [facility] Rx#: [id number] Sodium Chloride 0.9% 1, 800 000 ml @ 100 mls/hr IV . Q10H [facility] Rx#:[id number] Oral 1440 Other: Voiding Method Toilet # Voids 2 3 - Exam General appearance: The patient is alert, oriented, in no acute distress. HET: Head is normocephalic and atraumatic. Pupils are equal and reactive. Sclerae icterus. Oropharynx is clear without lesions. Neck: Supple without lymphadenopathy. Trachea midline. Heart: S1 S2. Regular rate and rhythm. Lungs: No crackles or wheezes are heard. Abdomen: Soft, mild midepigastric tenderness, nondistended with bowel sounds. No peritoneal signs. No palpable organomegaly or masses. Extremities: Normal skin color and turgor. No cyanosis, rash, ulceration, clubbing, or edema. Radial and pedal pulses are 2/4 bilaterally. Neurological: No focal deficits. Strength and sensation are grossly intact. - Labs CBC & Chem 7: 07/01/17 06:53 07/01/17 06:53 Labs: Abnormal Lab Results - Last 24 Hours (Table) 07/01/17 07/01/17 Range/Units 06:53 06:53 RBC 3.75 L (4.30-5.90) m/uL Hgb 12.0 L (13.0-17.5) gm/dL Hct 35.2 L (39.0-53.0) % Plt Count 148 L (150-450) k/uL Lymphocytes # 0.8 L (1.0-4.8) k/uL Chloride 112 H (98-107) mmol/L Glucose 101 H (74-99) mg/dL Total Bilirubin 3.7 H (0.2-1.3) mg/dL AST 76 H (17-59) U/L ALT 136 H (21-72) U/L Alkaline Phosphatase 351 H (38-126) U/L Total Protein 5.7 L (6.3-8.2) g/dL Albumin 3.1 L (3.5-5.0) g/dL Assessment and Plan (1) Elevated liver enzymes Narrative/Plan: Possible passage of choledocholithiasis status post ERCP. Etiology of elevated liver enzymes hyperbilirubinemia could be related to underlying acute cholecystitis and may improve after cholecystectomy. Status: Acute (2) Abdominal pain Status: Acute (3) Gallbladder sludge Status: Acute (4) HIV (human immunodeficiency virus infection) Status: Chronic Plan: 1. Liquid diet. Repeat CMP in the a.m. We'll continue to follow. Tentative OR tomorrow. Assessment and plan a care discussed with Dr. De La Fuente <Malgorzata Jones - Last Filed: 07/02/17 07:35> Objective - Vital Signs Vital signs: Vital Signs Temp 97.7 F 07/02/17 06:56 Pulse 65 07/02/17 06:56 Resp 16 07/02/17 06:56 BP 102/60 07/02/17 06:56 Pulse Ox 95 07/02/17 06:56 Intake & Output 07/01/17 07/02/17 07/02/17 18:59 06:59 18:59 Intake Total 450 525 Balance 450 525 Intake: Intake, IV Titration 450 525 Amount Sodium Chloride 0.9% 1, 450 525 000 ml @ 75 mls/hr IV . [id number] [facility] Rx#:[id number] Other: Voiding Method Toilet # Voids 1 1 - Labs CBC & Chem 7: 07/01/17 06:53 07/01/17 06:53 Labs: Abnormal Lab Results - Last 24 Hours (Table) 07/01/17 07/01/17 Range/Units 06:53 06:53 RBC 3.75 L (4.30-5.90) m/uL Hgb 12.0 L (13.0-17.5) gm/dL Hct 35.2 L (39.0-53.0) % Plt Count 148 L (150-450) k/uL Lymphocytes # 0.8 L (1.0-4.8) k/uL Chloride 112 H (98-107) mmol/L Glucose 101 H (74-99) mg/dL Total Bilirubin 3.7 H (0.2-1.3) mg/dL AST 76 H (17-59) U/L ALT 136 H (21-72) U/L Alkaline Phosphatase 351 H (38-126) U/L Total Protein 5.7 L (6.3-8.2) g/dL Albumin 3.1 L (3.5-5.0) g/dL Assessment and Plan Plan: Plan for laparoscopic cholecystectomy possible open and liver biopsy. Informed consent obtained. Liver bx requested by GI for elevated LFTs.
[2017-07-01] MEDS: ENOXAPARIN 40 MG/0.4 ML SYRINGE SQ SCH (10:46)
[2017-07-01] MEDS: SODIUM CHLORIDE 0.9% 1,000 ML IV SCH (10:47)
[2017-07-01] MEDS: HEPARIN SODIUM,PORCINE 5,000 UNIT/ML 1 ML VIAL SQ SCH (15:44)
[2017-07-01] MEDS: ONDANSETRON 4 MG/2 ML VIAL IVP PRN (16:51)
[2017-07-01] MEDS ORDERED: ACETAMINOPHEN IV (For NPO) 1,000 MG in EMPTY BAG 1 BAG IVPB ONE (17:00)
[2017-07-01] MEDS ORDERED: ACETAMINOPHEN IV (For NPO) 1,000 MG in EMPTY BAG 1 BAG IVPB SCH (18:00)
[2017-07-01] MEDS: PARoxetine 20 MG TAB PO SCH (20:58)
[2017-07-01] MEDS: ATORVASTATIN 80 MG TAB PO SCH (20:58)
[2017-07-01] MEDS: amLODIPine 5 MG TAB PO SCH (20:58)
[2017-07-01] MEDS: ATENOLOL 25 MG TAB PO SCH (20:58)
[2017-07-01] MEDS: [UNRECOGNIZED DRUG - OTHER] PO SCH (20:59)
[2017-07-02] MEDS: ACETAMINOPHEN IV (For NPO) 1,000 MG in EMPTY BAG 1 BAG IVPB SCH ×4 (00:43→17:30)
[2017-07-02] MEDS: HEPARIN SODIUM,PORCINE 5,000 UNIT/ML 1 ML VIAL SQ SCH ×4 (00:44→23:15)
[2017-07-02] MEDS: SODIUM CHLORIDE 0.9% 1,000 ML IV SCH ×2 (00:44→15:46)
[2017-07-02] MEDS: AMPICILLIN-SULBACTAM 3 GM in SODIUM CHLORIDE 0.9% 100 ML IVPB SCH ×4 (05:42→21:40)
[2017-07-02] MEDS ORDERED: IV FLUID CONTINUATION 1,000 ML IV ONE (06:53)
[2017-07-02] MEDS ORDERED: DEXAMETHASONE SOD PHOS (MDV) 100 MG/10 ML VIAL IV ONE (06:57)
[2017-07-02] MEDS: ONDANSETRON 4 MG/2 ML VIAL IVP PRN (06:57)
[2017-07-02] MEDS ORDERED: GLYCOPYRROLATE 0.2 MG/ML 2 ML VIAL ONE (07:40)
[2017-07-02] MEDS ORDERED: ROCURONIUM BROMIDE 10 MG/ML 10 ML VIAL IV ONE (07:40)
[2017-07-02] MEDS ORDERED: LIDOCAINE 1% INJ 10MG/ML (20 ML MDV) ONE (07:40)
[2017-07-02] MEDS ORDERED: PHENYLEPHRINE-0.9% NACL SYG 1 MG/10 ML SYRINGE ONE (07:40)
[2017-07-02] MEDS ORDERED: PROPOFOL 10 MG/ML 20 ML VIAL IV ONE (07:40)
[2017-07-02] MEDS ORDERED: ePHEDrine SULFATE/0.9% NACL/PF 50 MG/5 ML SYRINGE IV ONE (07:40)
[2017-07-02] MEDS ORDERED: fentaNYL (PF) 50 MCG/ML 2 ML AMP ONE (07:40)
[2017-07-02] MEDS ORDERED: SUCCINYLCHOLINE CHLORIDE 100 MG/5 ML SYR IV ONE (07:40)
[2017-07-02] MEDS ORDERED: MIDAZOLAM 2 MG/2 ML VIAL ONE (07:40)
[2017-07-02] MEDS ORDERED: NEOSTIGMINE 1 MG/ML 10 ML VIAL ONE (07:40)
[2017-07-02] MEDS ORDERED: LIDOCAINE 2%-EPI 1:100,000 20 ML VIAL SQ ONE ×3 (08:03)
[2017-07-02] MEDS: PANTOPRAZOLE 40 MG/10 ML VIAL IV SCH (08:30)
--- NOTE | 2017-07-02 09:58 | P.OP ---
Date of Procedure: 07/02/17 Preoperative Diagnosis: Chronic cholecytitis Choledoholithiasis S/P ERCP HIV Hypertension Postoperative Diagnosis: Same Procedure(s) Performed: Laparoscopic cholecystectomy Implants: NA Anesthesia: ZULMAA, local Surgeon: Malgorzata Jones Pathology: other Condition: stable Disposition: PACU Indications for Procedure: 71 years old male with known HIV positive status presents with acute cholecystitis. Informed consent obtained and he elected to undergo laparoscopic cholecystectomy possible open. He had elevated LFTs and plan was to obtain liver biopsies. However patient had gangrenous gallbladder which caused increased bleeding and hence liver biopsy was deferred Operative Findings: Gangrenous cholecystitis Description of Procedure: The patient was brought to the operating room and placed in supine position with both arms out. General anesthesia with endotracheal intubation was performed as per anesthesia team. Chlorhexidine was used to prep the abdomen followed by application of sterile drapes. A timeout was performed to verify correct patient and correct procedure. Patient was confirmed to receive perioperative IV antibiotics , heparin 5000 units subcutaneous injection and bilateral SCDs were placed. A 5 mm skin incision was made below the left costal margin at the anterior axillary line. A Veress needle was inserted and pneumoperitoneum was established to a pressure of 15 mmHg. A 5 mm Optiview trocar was loaded on a 5 mm 30 laparoscope and the peritoneal cavity was entered under direct vision using the Optiview technique. Additional 5 mm trocar was placed in the supraumbilical location and two 5 mm trocars along the right subcostal margin. The left 5 mm trocar was upsized to 10mm. The patient was placed in reverse Trendelenburg with right side up. The gallbladder was distended and was aspirated using a laparoscopic needle. The fundus of the gallbladder was grasped with an atraumatic grasper and was retracted over the dome of the liver. The infundibulum was grasped with an atraumatic grasper and retracted towards the pelvis to expose the Calot's triangle. Lateral and medial peritoneal attachment of the gallbladder bladder was dissected. Circumferential dissection was carried out around the cystic artery and the cystic duct to obtain adequate length for clip application. All the surrounding fibrofatty tissue were removed. Critical view was obtained with cystic duct and cystic artery as the only two structures entering the gallbladder. Two clips were applied on the patient's side and one on the specimen side on the cystic duct first followed by the cystic artery. Endoshears were used to divide the cystic duct and the cystic artery. The gallbladder was taken off the liver bed using a L-hook. The wall of the gallbladder had patchy necrosis consistent with gangrenous cholecystitis It was placed in an endocatch specimen bag and removed through the 10mm port. The gallbladder was passed off as a specimen. The abdominal cavity was inspected. The clips on the cystic duct and cystic artery stump were intact and no bleeding noted from the liver bed. All the trocar sites were examined and no evidence of bleeding. A JONATHAN drain was left in the subhepatic fossa. The 10mm port site was closed with two transfascial sutures of 0 Vicryl using a Tong Carlos Alberto device. The pneumoperitoneum was evacuated and all the trocars were removed. Local anesthetic was infiltrated along the trocar sites and incisions were closed using 4-0 Monocryl followed by application of Dermabond skin glue. The sponge, instrument and needle count were correct x2. Patient was extubated and taken to post anesthesia care unit in stable condition.
[2017-07-02] MEDS: ACETAMINOPHEN TAB 325 MG TAB PO PRN (11:19)
[2017-07-02 12:38] LABS: Basophils % (A) 0 %; CH 32.3; CHCM 33.3; Eosinophils % (A) 0 %; HCT 33.5 % (39.0-53.0); HDW 3.26; Luc # (Auto) 0.03; Luc % (Auto) 0; Lymphocytes # (A) 0.3 k/uL (1.0-4.8); Lymphocytes % (A) 4 %; MCH 31.9 pg (25.0-35.0); MCHC 32.7 g/dL (31.0-37.0); MCV 97.4 fL (80.0-100.0); Mean Platelet Volume 8.7; Monocytes # (A) 0.1 k/uL (0-1.0); Monocytes % (A) 2 %; Neutrophils # (A) 6.6 k/uL (1.3-7.7); Neutrophils % (A) 93 %; RBC 3.44 m/uL (4.30-5.90); RDW 13.3 % (11.5-15.5); WBC 7.1 k/uL (3.8-10.6); WBC (Perox) 7.57
[2017-07-02 12:56] LABS: ALT 171 U/L (21-72); AST 198 U/L (17-59); Alkaline Phosphatase 386 U/L (38-126); Anion Gap 12 mmol/L; Blood Urea Nitrogen 13 mg/dL (9-20); Carbon Dioxide 18 mmol/L (22-30); Chloride 111 mmol/L (98-107); Glucose 129 mg/dL (74-99); Non-African American GFR(MDRD) >60 (>60 ml/min/1.73 sqM); Potassium 3.9 mmol/L (3.5-5.1); Sodium 141 mmol/L (137-145); Total Bilirubin 4.8 mg/dL (0.2-1.3); Total Protein 5.5 g/dL (6.3-8.2)
[2017-07-02] MEDS: HYDROmorphone 1 MG/ML 1 ML SYRINGE IV PRN ×3 (12:57→17:55)
--- NOTE | 2017-07-02 15:02 | P.CONS ---
History of Present Illness - Reason for Consult Consult date: 07/02/17 HIV, gangrenous cholecystitis - History of Present Illness This is a 71-year-old male who presented to the hospital on June 29 with abdominal pain with nausea and vomiting and worsening symptoms after eating. On June 30 Dr. De La Fuente did an ERCP for choledocholithiasis with past CBD stone. On July 02 Dr. Jones did a cholecystectomy for gangrenous gallbladder. Liver function tests have all been elevated but improved with an AST of 76, ALT 136, alkaline phosphatase 351. Acute hepatitis panel is negative. Patient does have history of HIV diagnosed in 1996 and is on Genvoya which she has continued to take in the hospital. He follows with Dr. Cooper in [place]. He states he has a pulsing-type pain in the right upper quadrant. JONATHAN drain is intact with serosanguineous return. He denies having any fever or chills. He is currently on clear liquid diet. He has not had a bowel movement since surgery. Patient recently underwent prostate cancer on June 08. He denies having any complications from this and denies having any ongoing dysuria, frequency. Surgery is planning for discharge tomorrow. Review of Systems All systems: negative Constitutional: Denies chills, Denies chronic pain, Denies fatigue, Denies fever , Denies lethargy, Denies weakness Eyes: denies blurred vision, denies pain Ears, nose, mouth and throat: Denies dental pain, Denies headache, Denies mouth pain, Denies sore throat Cardiovascular: Denies chest pain, Denies decreased exercise tolerance, Denies dyspnea on exertion, Denies edema, Denies leg edema, Denies lightheadedness, Denies shortness of breath, Denies syncope Respiratory: Denies cough, Denies cough with sputum, Denies dyspnea, Denies home oxygen Gastrointestinal: Reports abdominal pain, Denies diarrhea, Denies nausea, Denies vomiting Genitourinary: Denies dysuria, Denies urinary frequency, Denies urinary retention Musculoskeletal: Denies myalgias Integumentary: Denies pruritus, Denies rash Neurological: Denies numbness, Denies weakness Psychiatric: Denies anxiety, Denies depression Endocrine: Denies fatigue, Denies weight change Past Medical History Past Medical History: Hyperlipidemia, Hypertension, Myocardial Infarction (AL) Additional Past Medical History / Comment(s): AIDS Last Myocardial Infarction Date:: 1999 History of Any Multi-Drug Resistant Organisms: None Reported Past Surgical History: Coronary Bypass/CABG, Heart Catheterization, Heart Catheterization With Stent, Prostate Surgery, Tonsillectomy Additional Past Surgical History / Comment(s): vasectomy, ERCP, cholecystectomy , prostate resection Date of Last Stent Placement:: none Past Psychological History: Depression Smoking Status: Never smoker Past Alcohol Use History: None Reported Additional Past Alcohol Use History / Comment(s): Patient is a lifelong nonsmoker. He denies any medical marijuana, marijuana, street drug or alcohol use. He lives at home with his . They have 3 dogs and 4 cats in the home. Past Drug Use History: None Reported Medications and Allergies Home Medications Medication Instructions Recorded Confirmed Type Aspirin [Adult Low Dose Aspirin EC] 81 mg PO HS 06/29/17 06/29/17 History Atenolol 25 mg PO HS 06/29/17 06/29/17 History Atorvastatin [Lipitor] 80 mg PO HS 06/29/17 06/29/17 History Elviteg/Clare/Emtric/Tenofo Ala 1 tab PO HS 06/29/17 06/29/17 History [Genvoya Tablet] Omeprazole 20 mg PO HS 06/29/17 06/29/17 History PARoxetine [Paxil] 20 mg PO HS 06/29/17 06/29/17 History amLODIPine [Norvasc] 5 mg PO HS 06/29/17 06/29/17 History diphenhydrAMINE HCL [Benadryl] 25 mg PO HS PRN 06/29/17 06/29/17 History Allergies Allergy/AdvReac Type Severity Reaction Status Date / Time No Known Allergies Allergy Verified 07/02/17 06:54 Physical Exam Vitals: Vital Signs Temp Pulse Resp BP Pulse Ox 07/02/17 11:40 98.7 F 07/02/17 10:30 86 16 127/67 96 07/02/17 10:14 86 16 129/68 96 07/02/17 09:59 83 16 117/65 97 07/02/17 09:44 97.8 F 87 16 131/65 96 07/02/17 06:56 97.7 F 65 16 102/60 95 07/02/17 04:55 98.4 F 65 16 106/70 94 L 07/02/17 02:08 97.0 F L 69 16 140/77 93 L 07/01/17 22:20 98.3 F 70 16 96/60 91 L 07/01/17 20:00 16 07/01/17 14:08 98.5 F 64 142/87 97 Intake and Output 07/01/17 07/02/17 07/02/17 22:59 06:59 14:59 Intake Total 525 1050 Output Total 115 Balance 525 935 Intake: IV 1050 Intake, IV Titration 525 Amount Sodium Chloride 0.9% 1, 525 000 ml @ 75 mls/hr IV . [id number] [facility] Rx#:[id number] Output: Drainage 15 Right Abdomen 15 Estimated Blood Loss 100 Other: Voiding Method Toilet # Voids 1 1 Gen: This is a 71-year-old male. He is found ambulating in his room and noted to have mild distress getting back into bed due to pain in the right upper quadrant. HEENT: Head is atraumatic, normocephalic. Pupils equal, round. Sclerae is anicteric. Conjunctiva pink. His memories of the mouth are dry. No thrush noted. NECK: Supple. No JVD. No lymphadenopathy. No thyromegaly. LUNGS: Clear to auscultation. No wheezes or rhonchi. No intercostal retractions. HEART: Regular rate and rhythm. No murmur. ABDOMEN: Soft. Bowel sounds are present. No masses. No tenderness. Puncture sites and no significant drainage. JONATHAN drain with small amount of blood around the site with serosanguineous drainage in the drain. EXTREMITIES: No pedal edema. No calf tenderness. Dorsalis pedis +2 bilaterally. NEUROLOGICAL: Patient is awake, alert and oriented x3. Cranial nerves 2 through 12 are grossly intact. Results Results: Laboratory Results WBC 7.1 k/uL (3.8-10.6) 07/02/17 12:09 RBC 3.44 m/uL (4.30-5.90) L 07/02/17 12:09 Hgb 11.0 gm/dL (13.0-17.5) L 07/02/17 12:09 Hct 33.5 % (39.0-53.0) L 07/02/17 12:09 MCV 97.4 fL (80.0-100.0) 07/02/17 12:09 MCH 31.9 pg (25.0-35.0) 07/02/17 12:09 MCHC 32.7 g/dL (31.0-37.0) 07/02/17 12:09 RDW 13.3 % (11.5-15.5) 07/02/17 12:09 Plt Count 146 k/uL (150-450) L 07/02/17 12:09 Neutrophils % 93 % 07/02/17 12:09 Lymphocytes % 4 % 07/02/17 12:09 Monocytes % 2 % 07/02/17 12:09 Eosinophils % 0 % 07/02/17 12:09 Basophils % 0 % 07/02/17 12:09 Neutrophils # 6.6 k/uL (1.3-7.7) 07/02/17 12:09 Lymphocytes # 0.3 k/uL (1.0-4.8) L 07/02/17 12:09 Monocytes # 0.1 k/uL (0-1.0) 07/02/17 12:09 Eosinophils # 0.0 k/uL (0-0.7) 07/02/17 12:09 Basophils # 0.0 k/uL (0-0.2) 07/02/17 12:09 PT 10.6 sec (9.0-12.0) 06/29/17 11:55 INR 1.0 (<1.2) 06/29/17 11:55 APTT 21.8 sec (22.0-30.0) L 06/29/17 11:55 Sodium 141 mmol/L (137-145) 07/02/17 12:07 Potassium 3.9 mmol/L (3.5-5.1) 07/02/17 12:07 Chloride 111 mmol/L (98-107) H 07/02/17 12:07 Carbon Dioxide 18 mmol/L (22-30) L 07/02/17 12:07 Anion Gap 12 mmol/L 07/02/17 12:07 BUN 13 mg/dL (9-20) 07/02/17 12:07 Creatinine 1.12 mg/dL (0.66-1.25) 07/02/17 12:07 Est GFR (MDRD) Af Amer >60 (>60 ml/min/1.73 sqM) 07/02/17 12:07 Est GFR (MDRD) Non-Af >60 (>60 ml/min/1.73 sqM) 07/02/17 12:07 Glucose 129 mg/dL (74-99) H 07/02/17 12:07 Plasma Lactic Acid Pierre 1.2 mmol/L (0.7-2.0) 06/29/17 11:55 Calcium 8.0 mg/dL (8.4-10.2) L 07/02/17 12:07 Total Bilirubin 4.8 mg/dL (0.2-1.3) H 07/02/17 12:07 Conjugated Bilirubin 1.1 mg/dL (0.0-0.3) H 06/30/17 06:47 Unconjugated Bilirubin 0.9 mg/dL (0.0-1.1) 06/30/17 06:47 Delta Bilirubin 1.6 mg/dL (0.0-0.2) H 06/30/17 06:47 AST 198 U/L (17-59) H 07/02/17 12:07 ALT 171 U/L (21-72) H 07/02/17 12:07 Alkaline Phosphatase 386 U/L (38-126) H 07/02/17 12:07 Total Creatine Kinase 28 U/L (55-170) L 06/29/17 11:55 CK-MB (CK-2) 0.3 ng/mL (0.0-2.4) 06/29/17 11:55 CK-MB (CK-2) Rel Index 1.1 06/29/17 11:55 Troponin I <0.012 ng/mL (0.000-0.034) 06/29/17 11:55 Total Protein 5.5 g/dL (6.3-8.2) L 07/02/17 12:07 Albumin 3.0 g/dL (3.5-5.0) L 07/02/17 12:07 Amylase <30 U/L (30-110) L 06/29/17 11:55 Lipase 110 U/L (23-300) 06/29/17 11:55 Urine Color Yellow 06/29/17 16:44 Urine Appearance Clear (Clear) 06/29/17 16:44 Urine pH 7.0 (5.0-8.0) 06/29/17 16:44 Ur Specific [place] 1.011 (1.001-1.035) 06/29/17 16:44 Urine Protein Negative (Negative) 06/29/17 16:44 Urine Glucose (UA) Trace (Negative) H 06/29/17 16:44 Urine Ketones Negative (Negative) 06/29/17 16:44 Urine Blood Negative (Negative) 06/29/17 16:44 Urine Nitrite Negative (Negative) 06/29/17 16:44 Urine Bilirubin Negative (Negative) 06/29/17 16:44 Urine Urobilinogen <2.0 mg/dL (<2.0) 06/29/17 16:44 Ur Leukocyte Esterase Trace (Negative) H 06/29/17 16:44 Urine RBC 1 /hpf (0-5) 06/29/17 16:44 Urine WBC 5 /hpf (0-5) 06/29/17 16:44 Urine Bacteria Rare /hpf (None) H 06/29/17 16:44 Urine Yeast (Budding) Occasional /hpf (None) H 06/29/17 16:44 Hepatitis A IgM Ab NEGATIVE 06/30/17 06:47 Hep Bs Antigen Negative 06/30/17 06:47 Hep B Core IgM Ab NEGATIVE 06/30/17 06:47 Hep C IgG Ab Negative (Negative) 06/30/17 06:47 Blood Type A Positive 06/29/17 11:55 Blood Type Recheck A Pos 06/29/17 11:55 Antibody Screen NEGATIVE 06/29/17 11:55 Spec Expiration Date 07/02/2017235406/29/17 11:55 CBC & Chem 7: 07/02/17 12:09 07/02/17 12:07 Labs: Abnormal Lab Results - Last 24 Hours (Table) 07/02/17 07/02/17 Range/Units 12:07 12:09 RBC 3.44 L (4.30-5.90) m/uL Hgb 11.0 L (13.0-17.5) gm/dL Hct 33.5 L (39.0-53.0) % Plt Count 146 L (150-450) k/uL Lymphocytes # 0.3 L (1.0-4.8) k/uL Chloride 111 H (98-107) mmol/L Carbon Dioxide 18 L (22-30) mmol/L Glucose 129 H (74-99) mg/dL Calcium 8.0 L (8.4-10.2) mg/dL Total Bilirubin 4.8 H (0.2-1.3) mg/dL AST 198 H (17-59) U/L ALT 171 H (21-72) U/L Alkaline Phosphatase 386 H (38-126) U/L Total Protein 5.5 L (6.3-8.2) g/dL Albumin 3.0 L (3.5-5.0) g/dL Assessment and Plan Plan: This is a 71-year-old male who presented to the hospital with cholecystitis and has undergone ERCP for choledocholithiasis with past CBD stone subsequently underwent cholecystectomy for gangrenous gallbladder. Liver function tests have been elevated and improving. He has been on antibiotics the form of Unasyn. Regarding history of HIV, patient is continued on Genvoya. Continue supportive care. Further recommendations as patient progresses. The above dictated assessment and findings were discussed with Dr. Quick. The impression and plan of care have been directed as dictated. Stacy Ridley nurse practitioner acting as scribe for Dr. Quick.
[2017-07-02] MEDS ORDERED: diphenhydrAMINE 50 MG/ML 1 ML VIAL IVP PRN (17:50)
--- NOTE | 2017-07-02 18:41 | P.CON ---
Consult Note - . Consult date: 07/02/17 Assessment/Plan:: This is a 71-year-old male know to the service from his open heart proceedure 18 years ago,who presented to the hospital on June 29 with abdominal pain with nausea and vomiting and worsening symptoms after eating. On June 30 Dr. De La Fuente did an ERCP for choledocholithiasis with past CBD stone. On July 02 Dr. Jones did a cholecystectomy for gangrenous gallbladder. Liver function tests have all been elevated but improved with an AST of 76, ALT 136, alkaline phosphatase 351. Acute hepatitis panel is negative. Patient does have history of HIV diagnosed in 1996 and is on Genvoya which she has continued to take in the hospital. He follows with Dr. Cooper in [place]. He states he has a pulsing-type pain in the right upper quadrant. JONATHAN drain is intact with serosanguineous return. He denies having any fever or chills. He is currently on clear liquid diet. He has not had a bowel movement since surgery. Patient recently underwent prostate cancer on June 08. He denies having any complications from this and denies having any ongoing dysuria , frequency. Surgery is planning for discharge tomorrow. Please see the consult note as dictated by nurse practitioner Mrs. Stacy Ridley. The patient receives his HIV care in [place]. He is on excellent therapy with Genvoya which his has brought from home for him to take. The gangrenous gallbladder has been removed with good result. Continue current antibiotic therapy, and can complete with Augmentin at discharge for total of 7 days. Can follow with me or primary physician after discharge. I agree with evaluation assessment and plan as dictated by [employer] Mrs. Stacy Ridley
[2017-07-02] MEDS: ATORVASTATIN 80 MG TAB PO SCH (21:36)
[2017-07-02] MEDS: ATENOLOL 25 MG TAB PO SCH (21:36)
[2017-07-02] MEDS: PARoxetine 20 MG TAB PO SCH (21:36)
[2017-07-02] MEDS: amLODIPine 5 MG TAB PO SCH (21:36)
[2017-07-02] MEDS: [UNRECOGNIZED DRUG - OTHER] PO SCH (21:36)
[2017-07-03] MEDS: SODIUM CHLORIDE 0.9% 1,000 ML IV SCH ×2 (03:59→04:43)
[2017-07-03] MEDS: AMPICILLIN-SULBACTAM 3 GM in SODIUM CHLORIDE 0.9% 100 ML IVPB SCH ×4 (04:40→21:37)
[2017-07-03] MEDS: HYDROcodone/APAP 5-325MG 1 EACH TAB PO PRN ×2 (04:47→18:58)
[2017-07-03 07:39] LABS: Basophils % (A) 0 %; CH 32.4; CHCM 34.1; Eosinophils % (A) 0 %; HDW 3.37; HGB 10.6 gm/dL (13.0-17.5); Luc # (Auto) 0.09; Luc % (Auto) 1; Lymphocytes # (A) 0.4 k/uL (1.0-4.8); Lymphocytes % (A) 3 %; MCH 31.6 pg (25.0-35.0); MCHC 33.1 g/dL (31.0-37.0); MCV 95.4 fL (80.0-100.0); Mean Platelet Volume 8.6; Monocytes # (A) 0.4 k/uL (0-1.0); Monocytes % (A) 4 %; Neutrophils % (A) 92 %; RBC 3.35 m/uL (4.30-5.90); RDW 13.5 % (11.5-15.5); WBC 10.9 k/uL (3.8-10.6); WBC (Perox) 10.69
[2017-07-03 07:47] LABS: ALT 477 U/L (21-72); Alkaline Phosphatase 381 U/L (38-126); Anion Gap 9 mmol/L; Blood Urea Nitrogen 16 mg/dL (9-20); Calcium 7.9 mg/dL (8.4-10.2); Carbon Dioxide 21 mmol/L (22-30); Chloride 113 mmol/L (98-107); Glucose 132 mg/dL (74-99); Non-African American GFR(MDRD) >60 (>60 ml/min/1.73 sqM); Potassium 3.8 mmol/L (3.5-5.1); Sodium 143 mmol/L (137-145); Total Bilirubin 1.8 mg/dL (0.2-1.3); Total Protein 5.4 g/dL (6.3-8.2)
[2017-07-03 07:59] LABS: AST 844 U/L (17-59)
[2017-07-03] MEDS: PANTOPRAZOLE 40 MG/10 ML VIAL IV SCH (08:55)
[2017-07-03] MEDS: HEPARIN SODIUM,PORCINE 5,000 UNIT/ML 1 ML VIAL SQ SCH ×2 (08:55→16:11)
[2017-07-03] MEDS: HYDROmorphone 1 MG/ML 1 ML SYRINGE IV PRN (11:01)
--- NOTE | 2017-07-03 12:50 | P.PN ---
Subjective S/P lap cholecystectomy for gangrenous cholecystitis H/O HIV Doing well. No acute events overnight Objective - Vital Signs Vital signs: Vital Signs Temp 98.2 F 07/03/17 06:15 Pulse 78 07/03/17 06:15 Resp 17 07/03/17 06:15 BP 119/71 07/03/17 06:15 Pulse Ox 90 L 07/03/17 06:15 Intake & Output 07/02/17 07/03/17 07/03/17 18:59 06:59 18:59 Intake Total 4959 021 8904 Output Total 125 1060 10 Balance 1150 -760 2140 Intake: IV 1050 Intake, IV Titration 225 850 Amount Ampicillin-Sulbactam 3 gm 100 In Sodium Chloride 0.9% 100 ml @ 100 mls/hr IVPB Q6H [facility] Rx#:[id number] Lactated Ringers 1,000 ml 225 As IV .[facility] Rx#: [id number] Sodium Chloride 0.9% 1, 750 000 ml @ 75 mls/hr IV . [id number] [facility] Rx#:[id number] Oral 300 1300 Output: Drainage 25 10 10 Right Abdomen 25 10 10 Urine 1050 Estimated Blood Loss 100 Other: Voiding Method Toilet # Voids 2 - Exam General: Patient is alert and oriented to time, place and person and cooperative with exam. He is not in acute distress. HEENT: No pallor, no icterus, Chest: Bilateral equal breath sounds present. No wheezes, no crackles. Cardiovascular: Regular rate and rhythm. Abdomen: Soft, nontender, nondistended. Incision- Clean, dry,intact. JONATHAN - serosanguinous drainage Neurologic: Cranial nerves II-XII intact. Strength upper and lower extremities 5/5. No focal neurologic deficits. Gait is normal. Psychiatric: No anxiety or psychosis. - Labs CBC & Chem 7: 07/03/17 06:45 07/03/17 06:45 Labs: Abnormal Lab Results - Last 24 Hours (Table) 07/02/17 07/03/17 07/03/17 Range/Units 12:07 06:45 06:45 WBC 10.9 H (3.8-10.6) k/uL RBC 3.35 L (4.30-5.90) m/uL Hgb 10.6 L (13.0-17.5) gm/dL Hct 32.0 L (39.0-53.0) % Neutrophils # 10.0 H (1.3-7.7) k/uL Lymphocytes # 0.4 L (1.0-4.8) k/uL Chloride 111 H 113 H (98-107) mmol/L Carbon Dioxide 18 L 21 L (22-30) mmol/L Glucose 129 H 132 H (74-99) mg/dL Calcium 8.0 L 7.9 L (8.4-10.2) mg/dL Total Bilirubin 4.8 H 1.8 H (0.2-1.3) mg/dL AST 198 H 844 H (17-59) U/L ALT 171 H 477 H (21-72) U/L Alkaline Phosphatase 386 H 381 H (38-126) U/L Total Protein 5.5 L 5.4 L (6.3-8.2) g/dL Albumin 3.0 L 2.9 L (3.5-5.0) g/dL Assessment and Plan (1) Acute cholecystitis Status: Acute (2) Elevated liver enzymes Status: Acute (3) Gallbladder sludge Status: Acute Plan: S/P laparoscopic cholecystectomy Liver bx deferred - increase bleeding from gallbladder fossa Check CBC and CMP in am DC planning on po Augmentin BID x 7 days as per ID
--- NOTE | 2017-07-03 17:57 | P.PN ---
Subjective Principal diagnosis: Abdominal pain This is a 71-year-old male who presented to the hospital on June 29 with abdominal pain with nausea and vomiting and worsening symptoms after eating. On June 30 Dr. De La Fuente did an ERCP for choledocholithiasis with past CBD stone. On July 02 Dr. Jones did a cholecystectomy for gangrenous gallbladder. Liver function tests have all been elevated but improved with an AST of 76, ALT 136, alkaline phosphatase 351. Acute hepatitis panel is negative. Patient does have history of HIV diagnosed in 1996 and is on Genvoya which she has continued to take in the hospital. He follows with Dr. Cooper in [place]. He states he has a pulsing-type pain in the right upper quadrant. JONATHAN drain is intact with serosanguineous return. He denies having any fever or chills. Improving further today. Is tolerating his advancing diet but is yet to be on solids. Once he is on solids will be then ready for discharge to home. Objective - Vital Signs Vital signs: Vital Signs Temp 98.2 F 07/03/17 14:43 Pulse 75 07/03/17 14:43 Resp 17 07/03/17 14:43 BP 124/79 07/03/17 14:43 Pulse Ox 93 L 07/03/17 14:43 Intake & Output 07/02/17 07/03/17 07/03/17 18:59 06:59 18:59 Intake Total 9386 741 2624 Output Total 125 1060 10 Balance 1150 -760 3940 Intake: IV 1050 Intake, IV Titration 225 1850 Amount Ampicillin-Sulbactam 3 gm 100 In Sodium Chloride 0.9% 100 ml @ 100 mls/hr IVPB Q6H [facility] Rx#:[id number] Lactated Ringers 1,000 ml 225 As IV [facility] Rx#: [id number] Sodium Chloride 0.9% 1, 1750 000 ml @ 75 mls/hr IV . [id number] [facility] Rx#:[id number] Oral 300 2100 Output: Drainage 25 10 10 Right Abdomen 25 10 10 Urine 1050 Estimated Blood Loss 100 Other: Voiding Method Toilet Toilet # Voids 2 - Exam Gen: This is a 71-year-old male. He is found ambulating in his room feeling even better today HEENT: Head is atraumatic, normocephalic. Pupils equal, round. Sclerae is anicteric. Conjunctiva pink. His memories of the mouth are dry. No thrush noted. NECK: Supple. No JVD. No lymphadenopathy. No thyromegaly. LUNGS: Clear to auscultation. No wheezes or rhonchi. No intercostal retractions. HEART: Regular rate and rhythm. No murmur. ABDOMEN: Soft. Bowel sounds are present. No masses. No tenderness. Puncture sites and no significant drainage. JONATHAN drain with small amount of blood around the site with serosanguineous drainage in the drain. EXTREMITIES: No pedal edema. No calf tenderness. Dorsalis pedis +2 bilaterally. NEUROLOGICAL: Patient is awake, alert and oriented x3. - Labs CBC & Chem 7: 07/03/17 06:45 07/03/17 06:45 Labs: Abnormal Lab Results - Last 24 Hours (Table) 07/03/17 07/03/17 Range/Units 06:45 06:45 WBC 10.9 H (3.8-10.6) k/uL RBC 3.35 L (4.30-5.90) m/uL Hgb 10.6 L (13.0-17.5) gm/dL Hct 32.0 L (39.0-53.0) % Neutrophils # 10.0 H (1.3-7.7) k/uL Lymphocytes # 0.4 L (1.0-4.8) k/uL Chloride 113 H (98-107) mmol/L Carbon Dioxide 21 L (22-30) mmol/L Glucose 132 H (74-99) mg/dL Calcium 7.9 L (8.4-10.2) mg/dL Total Bilirubin 1.8 H (0.2-1.3) mg/dL AST 844 H (17-59) U/L ALT 477 H (21-72) U/L Alkaline Phosphatase 381 H (38-126) U/L Total Protein 5.4 L (6.3-8.2) g/dL Albumin 2.9 L (3.5-5.0) g/dL Laboratory Results WBC 10.9 k/uL (3.8-10.6) H 07/03/17 06:45 RBC 3.35 m/uL (4.30-5.90) L 07/03/17 06:45 Hgb 10.6 gm/dL (13.0-17.5) L 07/03/17 06:45 Hct 32.0 % (39.0-53.0) L 07/03/17 06:45 MCV 95.4 fL (80.0-100.0) 07/03/17 06:45 MCH 31.6 pg (25.0-35.0) 07/03/17 06:45 MCHC 33.1 g/dL (31.0-37.0) 07/03/17 06:45 RDW 13.5 % (11.5-15.5) 07/03/17 06:45 Plt Count 158 k/uL (150-450) 07/03/17 06:45 Neutrophils % 92 % 07/03/17 06:45 Lymphocytes % 3 % 07/03/17 06:45 Monocytes % 4 % 07/03/17 06:45 Eosinophils % 0 % 07/03/17 06:45 Basophils % 0 % 07/03/17 06:45 Neutrophils # 10.0 k/uL (1.3-7.7) H 07/03/17 06:45 Lymphocytes # 0.4 k/uL (1.0-4.8) L 07/03/17 06:45 Monocytes # 0.4 k/uL (0-1.0) 07/03/17 06:45 Eosinophils # 0.0 k/uL (0-0.7) 07/03/17 06:45 Basophils # 0.0 k/uL (0-0.2) 07/03/17 06:45 PT 10.6 sec (9.0-12.0) 06/29/17 11:55 INR 1.0 (<1.2) 06/29/17 11:55 APTT 21.8 sec (22.0-30.0) L 06/29/17 11:55 Sodium 143 mmol/L (137-145) 07/03/17 06:45 Potassium 3.8 mmol/L (3.5-5.1) 07/03/17 06:45 Chloride 113 mmol/L (98-107) H 07/03/17 06:45 Carbon Dioxide 21 mmol/L (22-30) L 07/03/17 06:45 Anion Gap 9 mmol/L 07/03/17 06:45 BUN 16 mg/dL (9-20) 07/03/17 06:45 Creatinine 1.12 mg/dL (0.66-1.25) 07/03/17 06:45 Est GFR (MDRD) Af Amer >60 (>60 ml/min/1.73 sqM) 07/03/17 06:45 Est GFR (MDRD) Non-Af >60 (>60 ml/min/1.73 sqM) 07/03/17 06:45 Glucose 132 mg/dL (74-99) H 07/03/17 06:45 Plasma Lactic Acid Pierre 1.2 mmol/L (0.7-2.0) 06/29/17 11:55 Calcium 7.9 mg/dL (8.4-10.2) L 07/03/17 06:45 Total Bilirubin 1.8 mg/dL (0.2-1.3) H 07/03/17 06:45 Conjugated Bilirubin 1.1 mg/dL (0.0-0.3) H 06/30/17 06:47 Unconjugated Bilirubin 0.9 mg/dL (0.0-1.1) 06/30/17 06:47 Delta Bilirubin 1.6 mg/dL (0.0-0.2) H 06/30/17 06:47 AST 844 U/L (17-59) H 07/03/17 06:45 ALT 477 U/L (21-72) H 07/03/17 06:45 Alkaline Phosphatase 381 U/L (38-126) H 07/03/17 06:45 Total Creatine Kinase 28 U/L (55-170) L 06/29/17 11:55 CK-MB (CK-2) 0.3 ng/mL (0.0-2.4) 06/29/17 11:55 CK-MB (CK-2) Rel Index 1.1 06/29/17 11:55 Troponin I <0.012 ng/mL (0.000-0.034) 06/29/17 11:55 Total Protein 5.4 g/dL (6.3-8.2) L 07/03/17 06:45 Albumin 2.9 g/dL (3.5-5.0) L 07/03/17 06:45 Amylase <30 U/L (30-110) L 06/29/17 11:55 Lipase 110 U/L (23-300) 06/29/17 11:55 Urine Color Yellow 06/29/17 16:44 Urine Appearance Clear (Clear) 06/29/17 16:44 Urine pH 7.0 (5.0-8.0) 06/29/17 16:44 Ur Specific [place] 1.011 (1.001-1.035) 06/29/17 16:44 Urine Protein Negative (Negative) 06/29/17 16:44 Urine Glucose (UA) Trace (Negative) H 06/29/17 16:44 Urine Ketones Negative (Negative) 06/29/17 16:44 Urine Blood Negative (Negative) 06/29/17 16:44 Urine Nitrite Negative (Negative) 06/29/17 16:44 Urine Bilirubin Negative (Negative) 06/29/17 16:44 Urine Urobilinogen <2.0 mg/dL (<2.0) 06/29/17 16:44 Ur Leukocyte Esterase Trace (Negative) H 06/29/17 16:44 Urine RBC 1 /hpf (0-5) 06/29/17 16:44 Urine WBC 5 /hpf (0-5) 06/29/17 16:44 Urine Bacteria Rare /hpf (None) H 06/29/17 16:44 Urine Yeast (Budding) Occasional /hpf (None) H 06/29/17 16:44 Hepatitis A IgM Ab NEGATIVE 06/30/17 06:47 Hep Bs Antigen Negative 06/30/17 06:47 Hep B Core IgM Ab NEGATIVE 06/30/17 06:47 Hep C IgG Ab Negative (Negative) 06/30/17 06:47 Blood Type A Positive 06/29/17 11:55 Blood Type Recheck A Pos 06/29/17 11:55 Antibody Screen NEGATIVE 06/29/17 11:55 Spec Expiration Date 07/02/2017235406/29/17 11:55 Assessment and Plan (1) Acute cholecystitis Narrative/Plan: The patient receives his HIV care in [place]. He is on excellent therapy with Genvoya which his has brought from home for him to take. The gangrenous gallbladder has been removed with good result. Continue current antibiotic therapy, and can complete with Augmentin at discharge for total of 7 days. He fortunately is showing improvement. If he is able to tolerate a solid diet likely discharge home tomorrow. Routinely follows up in [place] baby had a semen to home after surgery if he has any acute needs. Status: Acute
--- NOTE | 2017-07-03 20:58 | PN ---
DATE OF SERVICE: 07/03/17 The patient is a 71-year-old pleasant white male admitted to the hospital with acute onset of abdominal pain associated with nausea and vomiting for the last four days duration. He was noted to have elevated serum transaminases and changes consistent with acute cholecystitis. Because of elevated serum transaminases, and he underwent an ERCP by Dr. De La Fuente on June 30 which was unremarkable. Subsequently, he underwent laparoscopy cholecystectomy yesterday by Dr. Jones that showed gangrenous gallbladder. We are following the patient because of elevated serum transaminases. The patient this morning says abdominal pain has improved. Some vague discomfort at the site of surgery. He reports no nausea or vomiting. On a clear liquid diet, tolerating well. No fever, chills or night sweats. On physical examination, appears comfortable in no apparent distress. Vital signs are stable. Blood pressure 169/84, pulse rate 76, temperature 98.1. - HEENT: Unremarkable. Conjunctivae pink. Sclerae anicteric. Oral cavity no lesions. Neck no JVD or lymph node enlargement. Chest clear to auscultation. Heart regular rate and rhythm. Abdomen is soft. Bowel sounds positive. No organomegaly. Extremities no pedal edema. Skin no rashes. Neurological : Alert and oriented times three. No focal deficits. Labs: From today, bilirubin is 1.8, AST 844, ALT 477, alk phos is 381. Hepatitis serologies for A, B and C were negative. IMPRESSION: 1. Elevated serum transaminases since hospitalization probably related to acute cholecystitis, possibly related to CBD stone could not be excluded. However, he did have an ERCP done by Dr. De La Fuente on 06/30 and was noted to have normal CBD at which point was thought that he may have passed CBD stone spontaneously. His serum transaminases continued to improve slightly. He underwent laparoscopic cholecystectomy yesterday and he is noted to have acute worsening of serum transaminases most likely related to postoperative in etiology. His serum transaminases today showed an AST of 844 and ALT 477 with alk phos of 381. T-bili has improved to 1.8. The patient clinically is symptomatic. 2. History of HIV, on antiviral therapy and Dr. Quick following the patient closely. RECOMMENDATIONS: 1. We will repeat serum transaminases tomorrow morning. 2. Continue current antibiotic regimen. 3. We will continue to follow closely during her hospital stay. [facility]
[2017-07-03] MEDS: ATORVASTATIN 80 MG TAB PO SCH (21:37)
[2017-07-03] MEDS: PARoxetine 20 MG TAB PO SCH (21:37)
[2017-07-03] MEDS: amLODIPine 5 MG TAB PO SCH (21:37)
[2017-07-03] MEDS: ATENOLOL 25 MG TAB PO SCH (21:37)
[2017-07-03] MEDS: [UNRECOGNIZED DRUG - OTHER] PO SCH (21:37)
[2017-07-03] MEDS: ACETAMINOPHEN TAB 325 MG TAB PO PRN (21:40)
[2017-07-04] MEDS: HEPARIN SODIUM,PORCINE 5,000 UNIT/ML 1 ML VIAL SQ SCH ×2 (00:40→07:03)
[2017-07-04] MEDS: AMPICILLIN-SULBACTAM 3 GM in SODIUM CHLORIDE 0.9% 100 ML IVPB SCH ×2 (06:16→09:45)
[2017-07-04] MEDS: SODIUM CHLORIDE 0.9% 1,000 ML IV SCH (06:18)
[2017-07-04 07:01] VITALS: BP 135/75; PULSE 78; RESP 12; TEMP 97.5
[2017-07-04] MEDS: PANTOPRAZOLE 40 MG/10 ML VIAL IV SCH (07:02)
[2017-07-04 07:42] LABS: Basophils % (A) 0 %; CH 32.1; CHCM 33.6; Eosinophils % (A) 0 %; HCT 35.9 % (39.0-53.0); HDW 3.34; HGB 11.6 gm/dL (13.0-17.5); Luc # (Auto) 0.13; Luc % (Auto) 1; Lymphocytes # (A) 0.4 k/uL (1.0-4.8); Lymphocytes % (A) 4 %; MCH 31.1 pg (25.0-35.0); MCHC 32.3 g/dL (31.0-37.0); MCV 96.3 fL (80.0-100.0); Monocytes # (A) 0.3 k/uL (0-1.0); Monocytes % (A) 3 %; Neutrophils % (A) 91 %; RBC 3.73 m/uL (4.30-5.90); WBC 9.8 k/uL (3.8-10.6); WBC (Perox) 10.14
[2017-07-04 08:04] LABS: ALT 338 U/L (21-72); AST 420 U/L (17-59); Alkaline Phosphatase 334 U/L (38-126); Anion Gap 9 mmol/L; Blood Urea Nitrogen 19 mg/dL (9-20); Calcium 7.6 mg/dL (8.4-10.2); Carbon Dioxide 19 mmol/L (22-30); Chloride 115 mmol/L (98-107); Glucose 131 mg/dL (74-99); Non-African American GFR(MDRD) >60 (>60 ml/min/1.73 sqM); Potassium 3.9 mmol/L (3.5-5.1); Sodium 143 mmol/L (137-145); Total Bilirubin 1.1 mg/dL (0.2-1.3); Total Protein 5.1 g/dL (6.3-8.2)
[2017-07-04] MEDS: HYDROcodone/APAP 5-325MG 1 EACH TAB PO PRN (09:50)
--- NOTE | 2017-07-04 11:34 | P.DS ---
Providers Date of admission: 06/29/17 16:23 Expected date of discharge: 07/04/17 Attending physician: Victorina Jones MD Consults: 06/30/17 10:27 Consult Physician Urgent Consulting Provider: Miki De La Fuente Consult Reason/Comments: Choledolithiasis Do you want consulting provider notified?: Yes 07/02/17 09:56 Consult Physician Urgent Consulting Provider: Yohan Quick Consult Reason/Comments: HIV, gangrenous cholecystitis Do you want consulting provider notified?: Yes Primary care physician: John Ryaneldor - Discharge Diagnosis(es) (1) Acute cholecystitis Current Visit: Yes Status: Acute (2) Elevated liver enzymes Current Visit: Yes Status: Acute (3) Gallbladder sludge Current Visit: Yes Status: Acute Hospital Course: 71 years old male underwent laparoscopic cholecystectomy and ERCP for choledocholithiasis. Known history of HIV, well controlled. Patient did well in the postoperative period liver function tests are trending down. His tolerating regular diet. Pain is well controlled at the time of discharge. JONATHAN drain teaching to the patient prior to discharge Patient Condition at Discharge: Fair Plan - Discharge Summary New Discharge Prescriptions: New Hydrocodone/Acetaminophen [Emmet 5-325] 1 each PO Q6HR PRN #10 tab PRN Reason: Pain Amoxicillin/Potassium Clav [Augmentin 875-125 Tablet] 1 tab PO Q12HR #14 tab No Action diphenhydrAMINE HCL [Benadryl] 25 mg PO HS PRN PRN Reason: Allergy Symptoms PARoxetine [Paxil] 20 mg PO HS Elviteg/Clare/Emtric/Tenofo Ala [Genvoya Tablet] 1 tab PO HS Atorvastatin [Lipitor] 80 mg PO HS Aspirin [Adult Low Dose Aspirin EC] 81 mg PO HS amLODIPine [Norvasc] 5 mg PO HS RX: Omeprazole 20 mg PO HS RX: Atenolol 25 mg PO HS Discharge Medication List Aspirin [Adult Low Dose Aspirin EC] 81 mg PO HS 06/29/17 [History] Atorvastatin [Lipitor] 80 mg PO HS 06/29/17 [History] Elviteg/Clare/Emtric/Tenofo Ala [Genvoya Tablet] 1 tab PO HS 06/29/17 [History] PARoxetine [Paxil] 20 mg PO HS 06/29/17 [History] RX: Atenolol 25 mg PO HS 06/29/17 [History] RX: Omeprazole 20 mg PO HS 06/29/17 [History] amLODIPine [Norvasc] 5 mg PO HS 06/29/17 [History] diphenhydrAMINE HCL [Benadryl] 25 mg PO HS PRN 06/29/17 [History] Amoxicillin/Potassium Clav [Augmentin 875-125 Tablet] 1 tab PO Q12HR #14 tab [Rx] Hydrocodone/Acetaminophen [Emmet 5-325] 1 each PO Q6HR PRN #10 tab 07/03/17 [Rx] Follow up Appointment(s)/Referral(s): Malgorzata Jones MD [STAFF PHYSICIAN] - 07/13/17 Activity/Diet/Wound Care/Special Instructions: OK to shower . No soaking bath. No heavy lifting more than 10 lbs for 6 weeks post surgery. No driving while taking narcotics for pain. May use ice packs for local pain relief Strip JONATHAN drain daily and record daily output Use incentive spirometry 10 times an hour while awake Discharge Disposition: HOME SELF-CARE
--- NOTE | 2017-07-04 16:42 | PN ---
The patient is a 71-year-old white male admitted to the hospital with acute cholecystitis, elevated LFTs. He underwent an ERCP by Dr. De La Fuente four days ago, which was unremarkable and subsequently he had a laparoscopic cholecystectomy done by Dr. Jones and was noted to have a gangrenous colitis. During this hospital stay he continued to have elevated serum transaminases, which following gallbladder surgery have gotten much worse. Yesterday serum AST was 844, ALT was 477. Today, serum AST is down to 420 and ALT 338. Alkaline phosphatase is 334 and bilirubin is 1.1. Patient denies any complaints. He reports no abdominal pain. No nausea or vomiting. On physical examination, appears comfortable in no apparent distress. Vital signs are stable. Blood pressure is 124/76, pulse rate is 75, temperature 98.2. HEENT: Unremarkable. Conjunctivae pink. Sclerae clear. Oral cavity, no lesions. NECK: No JVD or lymph node enlargement. CHEST: Clear to auscultation. HEART: Regular rate and rhythm. ABDOMEN: Soft. Bowel sounds are positive. No organomegaly. EXTREMITIES: No pedal edema. SKIN: No rashes. NEURO: Alert and oriented x3. No focal deficits. Labs done, today AST is down to 420, ALT. 338, alk-phos 334, T-bili 1.1. CBC is normal. IMPRESSION: 1. Acute gangrenous cholecystitis status post gallbladder surgery two days ago. 2. Elevated liver function tests at the time of admission to the hospital, status post ERCP by Dr. De La Fuente four days ago which was unremarkable. His LFTs further increased following gallbladder surgery but now they are gradually improving. RECOMMENDATIONS: 1. At this time I will continue to follow the liver enzymes closely. 2. If the patient is discharged home he was advised to follow up with Dr. De La Fuente in a week with repeat liver enzymes prior to office visit. 3. The plan was discussed with the patient. He is agreeable to it. HILLARY
== END 2017-07-04 12:00 | disposition home or self-care (01) | DRG 418 ==
LOC: EC 10:47 → 3SUR 16:23
PROVIDERS: ADMIT Surgery Plastic and Reconstructive Surgery; ATTEND Surgery Plastic and Reconstructive Surgery
PROC: 0FJB8ZZ Inspection of Hepatobiliary Duct, Via Natural or Artificial Opening Endoscopic (ICD-10-PCS; 2017-06-30)
PROC: BF141ZZ Fluoroscopy of Gallbladder, Bile Ducts and Pancreatic Ducts using Low Osmolar Contrast (ICD-10-PCS; 2017-06-30)
PROC: 0FT44ZZ Resection of Gallbladder, Percutaneous Endoscopic Approach (ICD-10-PCS; principal; 2017-07-02 07:30)
DX: K80.62 Calculus of gallbladder and bile duct with acute cholecystitis without obstruction (principal); K82.1 Hydrops of gallbladder; I10 Essential (primary) hypertension; I25.2 Old myocardial infarction; R00.1 Bradycardia, unspecified; R74.0 Nonspecific elevation of levels of transaminase and lactic acid dehydrogenase [LDH]; D64.9 Anemia, unspecified; I25.10 Atherosclerotic heart disease of native coronary artery without angina pectoris; F41.9 Anxiety disorder, unspecified; R74.8 Abnormal levels of other serum enzymes; E78.5 Hyperlipidemia, unspecified; F32.9 Major depressive disorder, single episode, unspecified; Z79.899 Other long term (current) drug therapy; Z85.46 Personal history of malignant neoplasm of prostate; Z79.82 Long term (current) use of aspirin; Z90.79 Acquired absence of other genital organ(s); Z98.52 Vasectomy status; Z95.5 Presence of coronary angioplasty implant and graft; Z21 Asymptomatic human immunodeficiency virus [HIV] infection status; Z95.1 Presence of aortocoronary bypass graft; Z87.448 Personal history of other diseases of urinary system; Z53.8 Procedure and treatment not carried out for other reasons
CPT/HCPCS: 36415; 43260; 74022; 74330; 76705; 80053; 80074; 81001; 82150; 82248; 82550; 82553; 83605; 83690; 84484; 85025; 85610; 85730; 86850; 86900; 86901; 88304; 93005; 96361; 96365; 96375; 96376; 99285

== ENCOUNTER 2025-01-02 16:15 | Inpatient (IN) | payer MEDICARE ==
--- NOTE | 2025-01-02 16:32 | ED ---
General Adult HPI - General Chief complaint: Chest Pain Stated complaint: chest pain Time Seen by Provider: 01/02/25 16:22 Source: patient, RN notes reviewed Mode of arrival: ambulatory Limitations: no limitations - History of Present Illness Initial comments: Patient is a 79-year-old male present to the emergency department with concerns with chest discomfort. Onset of symptoms was yesterday. Symptoms resolved last night. Symptoms returned about an hour and a half ago. Discomfort was severe however now is mild. Difficult time describing the type of discomfort. Patient does have some mild associated dyspnea, especially with exertion. No bib phoresis. No nausea or vomiting. Patient does have cardiac history with IN around 25 years ago. No calf pain or leg swelling. - Related Data Home Medications Medication Instructions Recorded Confirmed Omeprazole 20 mg PO DAILY 06/29/17 01/02/25 Ascorbic Acid [Vitamin C] 1,000 mg PO DAILY 01/02/25 01/02/25 Aspirin EC [Ecotrin] 325 mg PO DAILY 01/02/25 01/02/25 Bictegrav/Emtricit/Tenofov Ala 1 tab PO DAILY 01/02/25 01/02/25 [Biktarvy 50-200-25 mg Tablet] L.acidoph,Paracasei, B.lactis 1 cap PO DAILY 01/02/25 01/02/25 [Probiotic] [place]-3/Dha/Epa/Fish Oil [Fish Oil 1 cap PO DAILY 01/02/25 01/02/25 1,000 mg Softgel] Allergies Allergy/AdvReac Type Severity Reaction Status Date / Time Penicillins AdvReac Unknown Verified 01/02/25 17:17 Childhood Review of Systems ROS Statement: Those systems with pertinent positive or pertinent negative responses have been documented in the HPI. ROS Other: All systems not noted in ROS Statement are negative. Constitutional: Denies: fever Eyes: Denies: eye pain ENT: Denies: ear pain Respiratory: Reports: as per HPI. Denies: cough Cardiovascular: Reports: as per HPI, chest pain Gastrointestinal: Denies: abdominal pain Neurological: Denies: weakness Past Medical History Past Medical History: Hyperlipidemia, Hypertension, Myocardial Infarction ([place]) Additional Past Medical History / Comment(s): AIDS Last Myocardial Infarction Date:: 1999 History of Any Multi-Drug Resistant Organisms: None Reported Past Surgical History: Coronary Bypass/CABG, Heart Catheterization, Heart Catheterization With Stent, Prostate Surgery, Tonsillectomy Additional Past Surgical History / Comment(s): vasectomy, ERCP, cholecystectomy, prostate resection Date of Last Stent Placement:: none Past Psychological History: Depression Smoking Status: Never smoker Past Alcohol Use History: None Reported Past Drug Use History: None Reported General Exam Limitations: no limitations General appearance: alert, in no apparent distress Head exam: Present: normocephalic Eye exam: Present: normal appearance Neck exam: Present: normal inspection Respiratory exam: Present: normal lung sounds bilaterally. Absent: chest wall tenderness Cardiovascular Exam: Present: regular rate, normal rhythm, normal heart sounds Expanded Peripheral pulses: 2+: Radial (R), Radial (L), Posterior Tibialis (R), Posterior Tibialis (L) GI/Abdominal exam: Present: soft. Absent: tenderness Extremities exam: Present: normal inspection. Absent: pedal edema, calf tenderness Neurological exam: Present: alert Psychiatric exam: Present: normal affect, normal mood Skin exam: Present: normal color Course Vital Signs 01/02/25 01/02/25 01/02/25 16:18 17:09 19:31 Temperature 97.3 F L Pulse Rate 69 64 57 L Respiratory 18 18 18 Rate Blood Pressure 203/98 189/101 143/83 O2 Sat by Pulse 98 97 96 Oximetry EKG Findings - EKG Results: EKG: interpreted by ERMD (Q wave V1 V2. Nonspecific ST-T.), sinus rhythm, normal axis Medical Decision Making - Medical Decision Making Was pt. sent in by a medical professional or institution (, PA, BOARD CATCHER, urgent care, hospital, or detention...) When possible be specific @ -No Did you speak to anyone other than the patient for history (EMS, parent, family, police, friend...)? What history was obtained from this source @ -No Did you review nursing and triage notes (agree or disagree)? Why? @ -I reviewed and agree with nursing and triage notes Were old charts reviewed (outside hosp., previous admission, EMS record, old EKG, old radiological studies, urgent care reports/EKG's, detention records)? Report findings @ -No old charts were reviewed Differential Diagnosis (chest pain, altered mental status, abdominal pain women, abdominal pain men, vaginal bleeding, weakness, fever, dyspnea, syncope, headache, dizziness, GI bleed, back pain, seizure, CVA, palpatations, mental health, musculoskeletal)? @ -Differential Chest Pain: Stable Angina, Unstable Angina, STEMI, NSTEMI Aortic Dissection, Pneumothorax, Musculoskeletal, Esophageal Spasm GERD, Cholecystitis, Pancreatitis, Zoster, this is not meant to be an all-inclusive list. EKG interpreted by me (3pts min.). @ -As above X-rays interpreted by me (1pt min.). @ -Chest x-ray shows no acute process CT interpreted by me (1pt min.). @ -CT scan without acute process. Borderline aortic aneurysm 4 cm U/S interpreted by me (1pt. min.). @ -None done What testing was considered but not performed or refused? (CT, X-rays, U/S, labs)? Why? @ -None What meds were considered but not given or refused? Why? @ -None Did you discuss the management of the patient with other professionals (professionals i.e. Dr., PA, BOARD CATCHER, lab, RT, psych nurse, social work job titles, quarry plug and feather driller, teacher, fire control officer, bottle caser)? Give summary @ -Practitioner Denise Nathan will admit covering hospital call Was smoking cessation discussed for >3mins.? @ -No Was critical care preformed (if so, how long)? @ -32 minutes critical care time Were there social determinants of health that impacted care today? How? (Homelessness, low income, unemployed, alcoholism, drug addiction, transportation, low edu. Level, literacy, decrease access to med. care, fdc, rehab)? @ -No Was there de-escalation of care discussed even if they declined (Discuss DNR or withdrawal of care, Hospice)? DNR status @ -No What co-morbidities impacted this encounter? (DM, HTN, Smoking, COPD, CAD, Cancer, CVA, ARF, Chemo, Hep., AIDS, mental health diagnosis, sleep apnea, morbid obesity)? @ -History of previous [place] Was patient admitted / discharged? Hospital course, mention meds given and route, prescriptions, significant lab abnormalities, going to OR and other perti nent info. @ -Patient presents with chest discomfort, mild at this time. Troponin elevated. CT scan unremarkable. Patient reevaluated and near symptom-free. Patient and family are updated on results and plan. Patient will be admitted with heparin drip. Admission orders written. Cardiology placed on consult. Undiagnosed new problem with uncertain prognosis? @ -No Drug Therapy requiring intensive monitoring for toxicity (Heparin, Nitro, Insulin, Cardizem)? @ -Heparin drip Were any procedures done? @ -No Diagnosis/symptom? @ -Non-ST elevation myocardial infarction Acute, or Chronic, or Acute on Chronic? @ -Acute Uncomplicated (without systemic symptoms) or Complicated (systemic symptoms)? @ -Default Side effects of treatment? @ -No Exacerbation, Progression, or Severe Exacerbation? @ -No Poses a threat to life or bodily function? How? (Chest pain, [place], [place], pneumonia, PE, COPD, DKA, ARF, appy, cholecystitis, CVA, Diverticulitis, Homicidal, Suicidal, threat to staff... and all critical care pts) @ -Threat to cardiac function - Lab Data Result diagrams: 01/02/25 16:49 01/02/25 16:49 Lab Results 01/02/25 01/02/25 01/02/25 Range/Units 16:49 16:49 16:49 WBC 5.6 (3.8-10.6) k/uL RBC 4.42 (4.30-5.90) m/uL Hgb 14.1 (13.0-17.5) gm/dL Hct 42.2 (39.0-53.0) % MCV 95.4 (80.0-100.0) fL MCH 32.0 (25.0-35.0) pg MCHC 33.5 (31.0-37.0) g/dL RDW 12.4 (11.5-15.5) % Plt Count 132 L (150-450) k/uL MPV 7.9 Neutrophils % 61 % Lymphocytes % 31 % Monocytes % 5 % Eosinophils % 2 % Basophils % 0 % Neutrophils # 3.4 (1.3-7.7) k/uL Lymphocytes # 1.7 (1.0-4.8) k/uL Monocytes # 0.3 (0-1.0) k/uL Eosinophils # 0.1 (0-0.7) k/uL Basophils # 0.0 (0-0.2) k/uL PT 10.4 (10.0-12.5) sec INR 0.9 (<1.2) APTT 22.3 (22.0-30.0) sec D-Dimer 0.83 H (<0.60) mg/L FEU Sodium 139 (137-145) mmol/L Potassium 4.7 (3.5-5.1) mmol/L Chloride 110 H (98-107) mmol/L Carbon Dioxide 20 L (22-30) mmol/L Anion Gap 9 mmol/L BUN 22 H (9-20) mg/dL Creatinine 1.29 H (0.66-1.25) mg/dL Est GFR (CKD-EPI)AfAm 62 (>60 ml/min/1.73 sqM) Est GFR (CKD-EPI)NonAf 53 (>60 ml/min/1.73 sqM) Glucose 142 H (74-99) mg/dL Calcium 9.2 (8.4-10.2) mg/dL Magnesium 1.9 (1.6-2.3) mg/dL Total Bilirubin 0.8 (0.2-1.3) mg/dL AST 25 (17-59) U/L ALT 14 (4-49) U/L Alkaline Phosphatase 80 (38-126) U/L Troponin I (0.000-0.034) ng/mL NT-Pro-B Natriuret Pep 494 pg/mL Total Protein 6.4 (6.3-8.2) g/dL Albumin 4.0 (3.5-5.0) g/dL 01/02/25 Range/Units 16:49 WBC (3.8-10.6) k/uL RBC (4.30-5.90) m/uL Hgb (13.0-17.5) gm/dL Hct (39.0-53.0) % MCV (80.0-100.0) fL MCH (25.0-35.0) pg MCHC (31.0-37.0) g/dL RDW (11.5-15.5) % Plt Count (150-450) k/uL MPV Neutrophils % % Lymphocytes % % Monocytes % % Eosinophils % % Basophils % % Neutrophils # (1.3-7.7) k/uL Lymphocytes # (1.0-4.8) k/uL Monocytes # (0-1.0) k/uL Eosinophils # (0-0.7) k/uL Basophils # (0-0.2) k/uL PT (10.0-12.5) sec INR (<1.2) APTT (22.0-30.0) sec D-Dimer (<0.60) mg/L FEU Sodium (137-145) mmol/L Potassium (3.5-5.1) mmol/L Chloride (98-107) mmol/L Carbon Dioxide (22-30) mmol/L Anion Gap mmol/L BUN (9-20) mg/dL Creatinine (0.66-1.25) mg/dL Est GFR (CKD-EPI)AfAm (>60 ml/min/1.73 sqM) Est GFR (CKD-EPI)NonAf (>60 ml/min/1.73 sqM) Glucose (74-99) mg/dL Calcium (8.4-10.2) mg/dL Magnesium (1.6-2.3) mg/dL Total Bilirubin (0.2-1.3) mg/dL AST (17-59) U/L ALT (4-49) U/L Alkaline Phosphatase (38-126) U/L Troponin I 0.554 H* (0.000-0.034) ng/mL NT-Pro-B Natriuret Pep pg/mL Total Protein (6.3-8.2) g/dL Albumin (3.5-5.0) g/dL Critical Care Time Critical Care Time: Yes Disposition Clinical Impression: Acute non-ST elevation myocardial infarction (NSTEMI) Disposition: ADMITTED IP TO THIS [facility] Is patient prescribed a controlled substance at d/c from ED?: No Referrals: None,Stated [Primary Care Provider] - 1-2 days Time of Disposition: 19:47
[2025-01-02 17:00] LABS: Basophils % (A) 0 %; Eosinophils # (A) 0.1 k/uL (0-0.7); Eosinophils % (A) 2 %; HCT 42.2 % (39.0-53.0); HGB 14.1 gm/dL (13.0-17.5); Lymphocytes # (A) 1.7 k/uL (1.0-4.8); Lymphocytes % (A) 31 %; MCHC 33.5 g/dL (31.0-37.0); MCV 95.4 fL (80.0-100.0); Mean Platelet Volume 7.9; Monocytes # (A) 0.3 k/uL (0-1.0); Monocytes % (A) 5 %; Neutrophils # (A) 3.4 k/uL (1.3-7.7); Neutrophils % (A) 61 %; Platelet Count 132 k/uL (150-450); RBC 4.42 m/uL (4.30-5.90); RDW 12.4 % (11.5-15.5); WBC 5.6 k/uL (3.8-10.6)
[2025-01-02] MEDS: ASPIRIN 81 MG PO STA (17:06)
[2025-01-02] MEDS: NITROGLYCERIN OINT 1 INCH/GM PACKET TOPICAL STA (17:08)
[2025-01-02 17:12] LABS: INR 0.9 (<1.2); Partial Thromboplastin Time 22.3 sec (22.0-30.0); Prothrombin Time 10.4 sec (10.0-12.5)
[2025-01-02 17:14] LABS: ALT 14 U/L (4-49); AST 25 U/L (17-59); African American GFR (CKD) 62 (>60 ml/min/1.73 sqM); Alkaline Phosphatase 80 U/L (38-126); Anion Gap 9 mmol/L; Blood Urea Nitrogen 22 mg/dL (9-20); Calcium 9.2 mg/dL (8.4-10.2); Carbon Dioxide 20 mmol/L (22-30); Chloride 110 mmol/L (98-107); Glucose 142 mg/dL (74-99); Magnesium 1.9 mg/dL (1.6-2.3); Non-African American GFR(CKD) 53 (>60 ml/min/1.73 sqM); Potassium 4.7 mmol/L (3.5-5.1); Sodium 139 mmol/L (137-145); Total Bilirubin 0.8 mg/dL (0.2-1.3); Total Protein 6.4 g/dL (6.3-8.2)
[2025-01-02 17:22] LABS: NT-Pro-B-Type Natriuretic Pept 494 pg/mL
--- NOTE | 2025-01-02 17:33 | XR ---
EXAMINATION TYPE: XR chest 2V DATE OF EXAM: 01/02/2025 5:25 PM COMPARISON: Acute abdominal series 06/29/2017 TECHNIQUE: XR chest 2V Frontal and lateral views of the chest. CLINICAL INDICATION:Male, 79 years old with history of Chest Pain; FINDINGS: Lungs/Pleura: There is no evidence of pleural effusion, focal consolidation, or pneumothorax. Pulmonary vascularity: Unremarkable. Heart/mediastinum: Cardiomediastinal silhouette is prominent in size. Post-CABG changes. Musculoskeletal: Multiple level degenerative disc disease changes seen throughout the spine. Midline sternotomy wires are noted and stable. Other: Cholecystectomy clips in the right upper quadrant. IMPRESSION: No acute cardiopulmonary disease/process. [facility], , 01/02/2025 5:31 PM
--- NOTE | 2025-01-02 19:31 | CT ---
EXAMINATION TYPE: CT angio chest CT DLP: 422.1 mGycm, Automated exposure control for dose reduction was used. DATE OF EXAM: 01/02/2025 7:21 PM COMPARISON: Chest radiograph from same day. CLINICAL INDICATION:Male, 79 years old with history of cp; chest pain TECHNIQUE/CONTRAST: CTA scan of the thorax is performed with IV Contrast, patient injected with 100ml mL of Isovue 370, p ulmonary embolism protocol. MIP images are created and reviewed. FINDINGS: Pulmonary Artery: There is no evidence for a filling defect within the pulmonary vasculature to sugge st acute pulmonary embolism. The pulmonary artery is of normal size. Lungs/Pleura: No evidence of focal consolidation, pleural effusion or pneumothorax. Small dependent l eft lower lobe subsegmental atelectasis. No suspicious pulmonary nodule or mass. Airway: Large airways are patent. Heart: Heart is within normal limits for size. No pericardial effusion. Vasculature: Ascending thoracic aortic aneurysm measuring up to 4.0 cm. The aortic root measures up t o 3.5 cm. The descending thoracic aorta measures up to 2.9 cm. Mild atherosclerotic calcification of the aorta and its branches. Post-CABG changes. Mediastinum: No evidence of adenopathy. Musculoskeletal: No acute osseous abnormalities. Sternotomy wires. Multilevel degenerative disc disea se and anterior osteophytosis of the thoracic spine. Soft Tissues: Unremarkable. Lower neck: No significant findings. Upper Abdomen: Gallbladder is surgical absent. Right hepatic 1.4 cm cyst. IMPRESSION: 1. No evidence of pulmonary embolism or acute thoracic process. 2. Ascending thoracic aortic aneurysm measuring up to 4.0 cm. [facility], , 01/02/2025 7:29 PM
[2025-01-02] MEDS ORDERED: HEPARIN SODIUM 1,000 UN/ML (10ML VL) IV PRN (19:38)
[2025-01-02] MEDS ORDERED: NITROGLYCERIN SL TABS 0.4 MG TAB SUBLINGUAL PRN (19:47)
[2025-01-02] MEDS: HEPARIN SOD,PORK IN 0.45% NACL 25,000 UNIT in 0.45% NACL 1 250ML.BAG IV SCH (20:45)
[2025-01-02] MEDS: HEPARIN SODIUM 1,000 UN/ML (10ML VL) IV ONE (20:46)
[2025-01-02] MEDS: ATORVASTATIN 80 MG TAB PO SCH (21:59)
[2025-01-02] MEDS: NITROGLYCERIN OINT 1 INCH/GM PACKET TOPICAL SCH (23:25)
[2025-01-03 02:09] LABS: Basophils % (A) 0 %; Eosinophils # (A) 0.1 k/uL (0-0.7); Eosinophils % (A) 1 %; HCT 43.7 % (39.0-53.0); HGB 14.4 gm/dL (13.0-17.5); Lymphocytes # (A) 2.1 k/uL (1.0-4.8); Lymphocytes % (A) 29 %; MCH 31.5 pg (25.0-35.0); MCHC 32.9 g/dL (31.0-37.0); Mean Platelet Volume 8.1; Monocytes # (A) 0.5 k/uL (0-1.0); Monocytes % (A) 6 %; Neutrophils # (A) 4.5 k/uL (1.3-7.7); Neutrophils % (A) 62 %; Platelet Count 130 k/uL (150-450); RBC 4.55 m/uL (4.30-5.90); RDW 12.3 % (11.5-15.5); WBC 7.3 k/uL (3.8-10.6)
[2025-01-03 02:34] LABS: Prothrombin Time 11.1 sec (10.0-12.5)
--- NOTE | 2025-01-03 08:04 | P.HPIM ---
Review of Systems Review of systems CONSTITUTIONAL: No fever, no malaise, no fatigue. HEENT: No recent visual problems or hearing problems. Denied any sore throat. CARDIOVASCULAR: No orthopnea, PND, no palpitations, no syncope. PULMONARY: No shortness of breath, no cough, no hemoptysis. GASTROINTESTINAL: No diarrhea, no nausea, no vomiting, no abdominal pain. Normoactive bowel sounds. NEUROLOGICAL: No headaches, no weakness, no numbness. HEMATOLOGICAL: Denies any bleeding or petechiae. GENITOURINARY: Denies any burning micturition, frequency, or urgency. MUSCULOSKELETAL/RHEUMATOLOGICAL: Denies any joint pain, swelling, or any muscle pain. ENDOCRINE: Denies any polyuria or polydipsia. Past Medical History Past Medical History: Hyperlipidemia, Hypertension, Myocardial Infarction ([place]) Additional Past Medical History / Comment(s): AIDS Last Myocardial Infarction Date:: 1999 History of Any Multi-Drug Resistant Organisms: None Reported Past Surgical History: Coronary Bypass/CABG, Heart Catheterization, Heart Catheterization With Stent, Prostate Surgery, Tonsillectomy Additional Past Surgical History / Comment(s): vasectomy, ERCP, cholecystectomy, prostate resection Date of Last Stent Placement:: none Past Psychological History: Depression Smoking Status: Never smoker Past Alcohol Use History: None Reported Past Drug Use History: None Reported Medications and Allergies Home Medications Medication Instructions Recorded Confirmed Type Omeprazole 20 mg PO DAILY 06/29/17 01/02/25 History Ascorbic Acid [Vitamin C] 1,000 mg PO DAILY 01/02/25 01/02/25 History Aspirin EC [Ecotrin] 325 mg PO DAILY 01/02/25 01/02/25 History Bictegrav/Emtricit/Tenofov Ala 1 tab PO DAILY 01/02/25 01/02/25 History [Biktarvy 50-200-25 mg Tablet] L.acidoph,Paracasei, B.lactis 1 cap PO DAILY 01/02/25 01/02/25 History [Probiotic] [place]-3/Dha/Epa/Fish Oil [Fish Oil 1 cap PO DAILY 01/02/25 01/02/25 History 1,000 mg Softgel] Allergies Allergy/AdvReac Type Severity Reaction Status Date / Time Penicillins AdvReac Unknown Verified 01/02/25 17:17 Childhood Physical Exam Vitals: Vital Signs Temp Pulse Pulse Resp BP Pulse Ox 01/03/25 07:52 98.6 F 54 L 16 149/83 97 01/03/25 06:08 49 L 18 152/85 96 01/03/25 03:41 98.6 F 71 53 L 18 173/95 97 01/03/25 02:54 49 L 18 98 01/02/25 23:27 52 L 18 169/92 96 01/02/25 22:00 54 L 18 169/93 97 01/02/25 19:31 57 L 18 143/83 96 01/02/25 17:09 64 18 189/101 97 01/02/25 16:18 97.3 F L 69 18 203/98 98 Intake and Output 01/02/25 01/03/25 01/03/25 22:59 06:59 14:59 Other: Weight 90.718 kg GENERAL: The patient is alert and oriented x3, not in any acute distress. Well developed, well nourished. HEENT: Pupils are round and equally reacting to light. EOMI. No scleral icterus. No conjunctival pallor. Normocephalic, atraumatic. No pharyngeal erythema. No thyromegaly. CARDIOVASCULAR: S1 and S2 present. No murmurs, rubs, or gallops. PULMONARY: Chest is clear to auscultation, no wheezing , no crackles. ABDOMEN: Soft, nontender, nondistended, normoactive bowel sounds. No palpable organomegaly. MUSCULOSKELETAL: No joint swelling or deformity. EXTREMITIES: No cyanosis, clubbing, or pedal edema. NEUROLOGICAL: Gross neurological examination did not reveal any focal deficits. SKIN: No rashes. no petechiae. Results CBC & Chem 7: 01/03/25 01:22 01/02/25 16:49 Labs: Abnormal Lab Results - Last 24 Hours (Table) 01/02/25 01/02/25 01/02/25 Range/Units 16:49 16:49 16:49 Plt Count 132 L (150-450) k/uL APTT (22.0-30.0) sec D-Dimer 0.83 H (<0.60) mg/L FEU Chloride 110 H (98-107) mmol/L Carbon Dioxide 20 L (22-30) mmol/L BUN 22 H (9-20) mg/dL Creatinine 1.29 H (0.66-1.25) mg/dL Glucose 142 H (74-99) mg/dL Troponin I (0.000-0.034) ng/mL 01/02/25 01/02/25 01/03/25 Range/Units 16:49 21:25 01:22 Plt Count (150-450) k/uL APTT (22.0-30.0) sec D-Dimer (<0.60) mg/L FEU Chloride (98-107) mmol/L Carbon Dioxide (22-30) mmol/L BUN (9-20) mg/dL Creatinine (0.66-1.25) mg/dL Glucose (74-99) mg/dL Troponin I 0.554 H* 0.930 H* 2.100 H* (0.000-0.034) ng/mL 01/03/25 01/03/25 Range/Units 01:22 05:21 Plt Count 130 L (150-450) k/uL APTT 46.6 H (22.0-30.0) sec D-Dimer (<0.60) mg/L FEU Chloride (98-107) mmol/L Carbon Dioxide (22-30) mmol/L BUN (9-20) mg/dL Creatinine (0.66-1.25) mg/dL Glucose (74-99) mg/dL Troponin I (0.000-0.034) ng/mL Assessment and Plan Assessment: Non-STEMI coronary artery disease status post remote history of CABG, one-vessel Hypertension Prostate disease s/p resection Plan: Continue with aspirin Continue with heparin drip Check echocardiogram Cardiology team consult, for possible need for cardiac cath Labs and medication were reviewed.. Continue same treatment. Continue with symptomatic treatment. Resume home medication. Monitor labs and vitals. DVT and GI prophylaxis. Further recommendations as per clinical course of the patient DVT prophylaxis: heparin GI Prophylaxis: Pepcid PT/OT: Pending Prognosis is guarded
[2025-01-03] MEDS: ASCORBIC ACID 500 MG TAB PO SCH (08:35)
[2025-01-03] MEDS: ASPIRIN 325 MG TAB PO SCH (08:35)
[2025-01-03] MEDS: LACTOBACILLUS ACIDOPHILUS/PECT 1 EACH CAPSULE PO SCH (08:35)
[2025-01-03] MEDS: PANTOPRAZOLE 40 MG TABLET PO SCH (08:35)
[2025-01-03] MEDS: FAMOTIDINE 20 MG/2 ML VIAL IV SCH (08:36)
[2025-01-03] MEDS: Bictegrav/Emtricit/Tenofov Ala [Biktarvy 50-200-25 Mg Tablet] 1 EACH T PO SCH (08:43)
[2025-01-03] MEDS ORDERED: NON FORMULARY DRUG (Omega-3/Dha/Epa/Fish Oil [Fish Oil 1,000 Mg Softgel] 1 EACH Capsule) PO SCH (09:00)
[2025-01-03] MEDS ORDERED: HEPARIN SODIUM,PORCINE 5,000 UNIT/ML 1 ML VIAL SQ SCH (09:00)
[2025-01-03 09:09] LABS: LDL Cholesterol,Calculated 150.9 mg/dL (0.0-131.0)
[2025-01-03] MEDS ORDERED: NITROGLYCERIN SL TABS 0.4 MG TAB SUBLINGUAL PRN (10:22)
[2025-01-03] MEDS ORDERED: ALPRAZolam 0.5 MG TAB PO PRN (10:22)
[2025-01-03] MEDS ORDERED: ALPRAZolam 0.25 MG TAB PO PRN (10:22)
[2025-01-03] MEDS: ATORVASTATIN 80 MG TAB PO STA (10:33)
[2025-01-03] MEDS: ASPIRIN 325 MG TAB PO STA (10:33)
[2025-01-03 11:47] LABS: African American GFR (CKD) 73 (>60 ml/min/1.73 sqM); Albumin 3.9 g/dL (3.5-5.0); Anion Gap 8 mmol/L; Blood Urea Nitrogen 18 mg/dL (9-20); Calcium 9.4 mg/dL (8.4-10.2); Carbon Dioxide 21 mmol/L (22-30); Chloride 110 mmol/L (98-107); Glucose 96 mg/dL (74-99); Non-African American GFR(CKD) 63 (>60 ml/min/1.73 sqM); Phosphorus 3.4 mg/dL (2.5-4.5); Potassium 4.5 mmol/L (3.5-5.1); Sodium 139 mmol/L (137-145)
[2025-01-03] MEDS: LOSARTAN 25 MG TAB PO SCH (11:56)
[2025-01-03] MEDS: METOPROLOL TARTRATE 25 MG TAB PO SCH (11:57)
[2025-01-03] MEDS: IV FLUID CONTINUATION 500 ML IV ONE (13:20)
[2025-01-03] MEDS: MIDAZOLAM 2 MG/2 ML VIAL IVP ONE (13:25)
[2025-01-03] MEDS: fentaNYL (PF) 50 MCG/ML 2 ML AMP IVP ONE (13:25)
[2025-01-03] MEDS: LIDOCAINE 1% INJ 10MG/ML (20 ML MDV) SQ ONE (13:26)
[2025-01-03] MEDS: VERAPAMIL SYRINGE (5 MG/10 ML) INTRAARTER ONE (13:27)
--- NOTE | 2025-01-03 13:30 | P.CRDCN ---
History of Present Illness Consult date: 01/03/25 Reason for Consult (text): NSTEMI History of present illness: This is a 79-year-old male patient with past medical history of coronary artery disease with CABG 1 vessel in 1998 in the setting of an [place], AIDS, GERD. We have been asked to evaluate the patient for NSTEMI. Patient gives history of developing chest pain that started on Wednesday afternoon. It persisted until he went to bed and then went away. This started again at 245 on Wednesday but it was more severe. He was going across his upper chest and to the bilateral shoulders. Patient received baby aspirin and Nitropaste. He feels that the Nitropaste help the pain go away. He denies any pain at this time. He also had shortness of breath nausea without vomiting and cold sweats with the pain. His blood pressure readings are elevated but patient does not check his blood pres sure at home. 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 Patient denies history of smoking and no alcohol abuse. His dad had history of [place]. Blood pressure 148/88, heart rate 56, pulse ox 97% on room air. Patient has been started on Cardizem drip. -EKG: Sinus rhythm with sinus arrhythmia. -Chest x-ray: No acute process -Laboratory studies: WBC 7.3, hemoglobin 14.4, platelet count 130. D-dimer 0 .82. Potassium 4.7, CO2 20, BUN 22 creatinine 1.29. Troponin 0.554, 0.93, 2.1. Triglycerides 122, cholesterol 209, LDL 150, HDL 33. -Home cardiac medications: Aspirin 325 mg daily. - Review Of Systems: At the time of my exam: CONSTITUTIONAL: Denies fever or chills. HEENT: Denies blurred vision, vision changes, or eye pain. Denies hemoptysis CARDIOVASCULAR: Denies chest pain. Denies orthopnea. Denies PND. Denies palpitations RESPIRATORY: Denies shortness of breath. GASTROINTESTINAL: Denies abdominal pain. Denies nausea or vomiting. HEMATOLOGIC: Denies bleeding disorders. GENITOURINARY: Denies any blood in urine. SKIN: Denies puritis. Denies rash. Physical examination: Gen: This is a 79-year-old male in no acute distress VS: reviewed HEENT: Head is atraumatic, normocephalic. Pupils equal, round. Sclerae is anicteric. NECK: Supple. No JVD. LUNGS: Clear to auscultation. No wheezes or rhonchi. No intercostal retractions. HEART: Regular rate and rhythm. No murmur. ABDOMEN: Soft No tenderness. EXTREMITIES: No pedal edema. No calf tenderness. NEUROLOGICAL: Patient is awake, alert and oriented x3. Assessment: NSTEMI Hypertension History of coronary artery disease with previous CABG x 1 vessel in 1998 AIDS GERD Plan: Start patient on aspirin 81 mg daily, atorvastatin 40 mg daily, losartan 25 mg daily, Lopressor 25 mg twice daily Continue patient on heparin drip Schedule patient for cardiac catheterization with Dr. Salinas today Obtain 2-D echocardiogram and Doppler study to assess cardiac structure and function Further recommendations to follow based upon clinical course Thank you kindly for this consultation. Nurse practitioner note has been reviewed, I agree with documented findings and plan of care. Patient was seen and examined. Past Medical History Past Medical History: Hyperlipidemia, Hypertension, Myocardial Infarction ([place]) Additional Past Medical History / Comment(s): AIDS Last Myocardial Infarction Date:: 1999 History of Any Multi-Drug Resistant Organisms: None Reported Past Surgical History: Coronary Bypass/CABG, Heart Catheterization, Heart Catheterization With Stent, Prostate Surgery, Tonsillectomy Additional Past Surgical History / Comment(s): vasectomy, ERCP, cholecystectomy, prostate resection Date of Last Stent Placement:: none Past Psychological History: Depression Smoking Status: Never smoker Past Alcohol Use History: None Reported Past Drug Use History: None Reported Medications and Allergies Home Medications Medication Instructions Recorded Confirmed Type Omeprazole 20 mg PO DAILY 06/29/17 01/02/25 History Ascorbic Acid [Vitamin C] 1,000 mg PO DAILY 01/02/25 01/02/25 History Aspirin EC [Ecotrin] 325 mg PO DAILY 01/02/25 01/02/25 History Bictegrav/Emtricit/Tenofov Ala 1 tab PO DAILY 01/02/25 01/02/25 History [Biktarvy 50-200-25 mg Tablet] L.acidoph,Paracasei, B.lactis 1 cap PO DAILY 01/02/25 01/02/25 History [Probiotic] [place]-3/Dha/Epa/Fish Oil [Fish Oil 1 cap PO DAILY 01/02/25 01/02/25 History 1,000 mg Softgel] Allergies Allergy/AdvReac Type Severity Reaction Status Date / Time Penicillins AdvReac Unknown Verified 01/02/25 17:17 Childhood Physical Exam Vitals: Vital Signs Temp Pulse Pulse Resp BP Pulse Ox 01/03/25 07:52 98.6 F 54 L 16 149/83 97 01/03/25 06:08 49 L 18 152/85 96 01/03/25 03:41 98.6 F 71 53 L 18 173/95 97 01/03/25 02:54 49 L 18 98 01/02/25 23:27 52 L 18 169/92 96 01/02/25 22:00 54 L 18 169/93 97 01/02/25 19:31 57 L 18 143/83 96 01/02/25 17:09 64 18 189/101 97 01/02/25 16:18 97.3 F L 69 18 203/98 98 Intake and Output 01/02/25 01/03/25 01/03/25 22:59 06:59 14:59 Other: Weight 90.718 kg Results 01/03/25 01:22 01/03/25 01:22 Cardiac Enzymes 01/02/25 01/02/25 01/02/25 Range/Units 16:49 16:49 21:25 AST 25 (17-59) U/L Troponin I 0.554 H* 0.930 H* (0.000-0.034) ng/mL 01/03/25 Range/Units 01:22 AST (17-59) U/L Troponin I 2.100 H* (0.000-0.034) ng/mL Coagulation 01/02/25 01/03/25 01/03/25 Range/Units 16:49 01:22 05:21 PT 10.4 11.1 (10.0-12.5) sec APTT 22.3 46.6 H (22.0-30.0) sec Lipids 01/03/25 Range/Units 01:22 Triglycerides 122.00 (0.00-149.00) mg/dL Cholesterol 209.00 H (0.00-200.00) mg/dL HDL Cholesterol 33.70 L (40.00-60.00) mg/dL Cholesterol/HDL Ratio 6.20 Ratio CBC 01/02/25 01/03/25 Range/Units 16:49 01:22 WBC 5.6 7.3 (3.8-10.6) k/uL RBC 4.42 4.55 (4.30-5.90) m/uL Hgb 14.1 14.4 (13.0-17.5) gm/dL Hct 42.2 43.7 (39.0-53.0) % Plt Count 132 L 130 L (150-450) k/uL Comprehensive Metabolic Panel 01/02/25 Range/Units 16:49 Sodium 139 (137-145) mmol/L Potassium 4.7 (3.5-5.1) mmol/L Chloride 110 H (98-107) mmol/L Carbon Dioxide 20 L (22-30) mmol/L BUN 22 H (9-20) mg/dL Creatinine 1.29 H (0.66-1.25) mg/dL Glucose 142 H (74-99) mg/dL Calcium 9.2 (8.4-10.2) mg/dL AST 25 (17-59) U/L ALT 14 (4-49) U/L Alkaline Phosphatase 80 (38-126) U/L Total Protein 6.4 (6.3-8.2) g/dL Albumin 4.0 (3.5-5.0) g/dL Current Medications Generic Name Dose Route Start Last Admin Trade Name Freq PRN Reason Stop Dose Admin Ascorbic Acid 1,000 mg 01/03/25 09:00 01/03/25 08:35 Ascorbic Acid 500 Mg Tab PO 1,000 mg DAILY AB Administration Aspirin 325 mg 01/03/25 09:00 01/03/25 08:35 Aspirin 325 Mg Tab PO 325 mg DAILY AB Administration Atorvastatin Calcium 80 mg 01/02/25 20:00 01/03/25 08:36 Atorvastatin 80 Mg Tab PO 80 mg DAILY AB Administration Famotidine 20 mg 01/03/25 09:00 01/03/25 08:36 Famotidine 20 Mg/2 Ml Vial IV 20 mg Q12HR AB Administration Heparin Sodium (Porcine) 0 unit 01/02/25 19:38 Heparin Sodium 1,000 Un/Ml (10ml Vl) IV PER PROTOCOL PRN Low PTT Protocol Heparin Sodium/Sodium Chloride 250 mls @ 9.997 mls/hr 01/02/25 19:45 01/02/25 20:45 25,000 unit/ Sodium Chloride IV 11.02 units/kg/hr .Q24H AB 9.997 mls/hr Administration Protocol 11.02 UNITS/KG/HR Lactobacillus Acidophilus 1 each 01/03/25 09:00 01/03/25 08:35 Lactobacillus Acidophilus/Pect 1 Each Capsule PO 1 each DAILY AB Administration Nitroglycerin 0.4 mg 01/02/25 19:47 Nitroglycerin Sl Tabs 0.4 Mg Tab SUBLINGUAL Q5M PRN Chest Pain Nitroglycerin 1 inch 01/03/25 00:00 01/03/25 06:15 Nitroglycerin Oint 1 Inch/Gm Packet TOPICAL 1 inch Q6HR AB Administration Bictegrav/Emtricit/ 1 each 01/03/25 09:00 01/03/25 08:43 Tenofov Ala [ PO Not Given Biktarvy 50-200-25 DAILY AB Mg Tablet] 1 Each T Pantoprazole Sodium 40 mg 01/03/25 07:30 01/03/25 08:35 Pantoprazole 40 Mg Tablet PO 40 mg [id number] AB Administration Intake and Output 01/02/25 01/03/25 01/03/25 22:59 06:59 14:59 Other: Weight 90.718 kg 01/03/25 01:22 01/02/25 16:49
[2025-01-03] MEDS: TICAGRELOR 90 MG TAB PO ONE (13:40)
[2025-01-03] MEDS: HEPARIN SODIUM 1,000 UN/ML (10ML VL) IV ONE ×2 (13:43→14:27)
[2025-01-03] MEDS: SODIUM CHLORIDE 0.9% 1,000 ML IV ONE (13:49)
[2025-01-03] MEDS: HEPARIN SODIUM,PORCINE 10,000 UNIT in SODIUM CHLORIDE 0.9% 1,000 ML IRRIGATION PRN (13:49)
[2025-01-03] MEDS: HEPARIN SODIUM,PORCINE (1 ML) 2,500 UNIT in SODIUM CHLORIDE 0.9% 250 ML IRRIGATION PRN (13:51)
[2025-01-03] MEDS: NITROGLYCERIN 1000MCG/10ML SYRINGE INTRACORON ONE (13:56)
[2025-01-03] MEDS: IOPAMIDOL-370 100ML BTL INJ ONE ×2 (13:58→14:39)
[2025-01-03] MEDS: TIROFIBAN BOLUS 12.5MG/250 ML BAG IV ONE (14:16)
[2025-01-03] MEDS: TIROFIBAN 12.5MG-250ML NS 250 ML IV ONE (14:25)
[2025-01-03] MEDS ORDERED: ATROPINE SULFATE 0.1 MG/ML 10ML SYRINGE IV PRN (15:30)
[2025-01-03] MEDS ORDERED: RX INFO: IV CONTRAST WAS GIVEN 1 EACH MISC MISCELLANE PRN (15:30)
[2025-01-03] MEDS ORDERED: MAG HYDROX/AL HYDROX/SIMETH 30 ML CUP PO PRN (15:30)
[2025-01-03] MEDS ORDERED: ZOLPIDEM 5 MG TAB PO PRN (15:30)
--- NOTE | 2025-01-03 16:30 | P.PRCINT ---
Percutaneous Coronary Int. - Percutaneous Coronary Intervention Percutaneous Coronary Intervention: PROCEDURES PERFORMED: Left heart catheterization, bilateral coronary angiography, ultrasound guided arterial access, NICHOLS to LAD angiography, PCI left main into the circumflex with a 4.0 x 15 mm Xience MARK, postdilated with a 4.5 mm noncompliant balloon, PCI proximal OM1 with a 3.25 x 23 mm Xience MARK, IVUS circumflex INDICATION: Non-STEMI CONSENT:I have discussed the risks, benefits and alternative therapies for the above-mentioned procedure and for both sedation/analgesia as well as necessary blood product administration, if indicated, as they pertain to this patient. The patient has indicated understanding and acceptance of the risks and procedures discussed. PROCEDURE: After the risks, benefits and alternatives of the above mentioned procedure explained in detail with the patient, informed consent was obtained. Patient was taken to the catheterization lab and prepped and draped in usual fashion. Ultrasound guidance was used to assess for arterial access. 1% lidocaine was used to anesthetize the left radial artery. A 6-[place]ian sheath was placed in the left radial artery using modified Seldinger technique and ultrasound guidance. Left coronary angiography was performed with a 5-[place] JL 4.0 catheter and right coronary angiography was performed with a 5-[place] FR5 catheter in various views. A 5-[place] FR5 catheter was inserted into the left ventricle and pressure measurements were obtained. NICHOLS to LAD angiography was performed with a 5Fr FR5 catheter. The decision was made to perform PCI of the circumflex/OM1. Heparin was given. A 6 [place] CLS 4.0 catheter was used to engage the left main. A 0.014 BMW wire was advanced to the distal OM1. Predilation was performed with a 2.75 x 12 mm balloon. Intravascular ultrasound was performed and did show surprisingly severe 80% stenosis with what appeared to be plaque of the proximal/ostial circumflex. This was not as well identified on the angiograms however clearly on intravascular ultrasound was significant. Reference vessel more distally was 3.25 mm. Therefore 3.25 x 23 mm drug-eluting stent was placed in the proximal OM1 branch. There was closure of the circumflex however after placement of the stent with inferior ST elevations. This was felt related to no reflow from the ostial circumflex disease. A 4.0 x 15 mm drug-eluting stent was placed from the left main into the proximal dominant circumflex. ST elevations and patient's chest pain and blood pressure improved after stenting. The stent was mildly under deployed more proximally and therefore this was postdilated with a 4.5 mm noncompliant balloon. Final angiograms were performed. Preintervention there was 95% stenosis and FARZANA III flow and postintervention there was less than 10% stenosis with [place]ZA[place]-3 flow. The left radial sheath was removed and a TR band was placed with hemostasis achieved. The patient tolerated the procedure well. Patient was transported back to the post catheterization holding area in stable condition. Conscious Sedation: Patient was monitored under the direct supervision of myself for conscious sedation using Versed and fentanyl for a total duration of 67 minutes HEMODYNAMICS: Aorta: 108/72 LV: 105/2, LVEDP 8 SELECTIVE CORONARY ARTERIOGRAPHY: LEFT MAIN: The left main is a large caliber vessel which bifurcates into the LAD and circumflex. There is no significant stenosis. LEFT ANTERIOR DESCENDING CORONARY ARTERY: LAD is a large caliber vessel which wraps around to the apex. There is a proximal LAD 50% stenosis and then mid LAD 100% stenosis after a small caliber diagonal 1 branch. LEFT CIRCUMFLEX CORONARY ARTERY: Left circumflex is a large caliber vessel with what appears to be a 40% ostial circumflex stenosis by angiography and otherwise mild luminal irregularities. The circumflex is dominant and supplies the PDA. There is 100% distal circumflex stenosis after a moderate to large caliber OM 2 branch. There are left to left collaterals. OM1 has a 95% stenosis. RIGHT CORONARY ARTERY: The right coronary artery is a small caliber vessel which gives off an acute marginal branch and is nondominant. There is 40-50% stenosis. NICHOLS to LAD: NICHOLS is widely patent. There is mid to distal LAD 90% stenosis and otherwise mild luminal irregularaties FINAL IMPRESSION: 1. CAD as described above including proximal LAD 50%, mid LAD 100%, ostial circumflex 40%, OM1 95%, mid to distal LAD 90%, PDA 100% stenosis. 2. Normal left sided filling pressures 3. S/p PCI proximal OM1 with a 3.25 x 23 mm Xience MARK with additional findings of 90% plaque in the ostial circumflex s/p PCI left main into the circumflex with a 4.0 x 15 mm Xience MARK, postdilated with a 4.5 mm noncompliant balloon PLAN: 1. Aggressive risk factor modification per most recent ACC/AHA guidelines. 2. Continue aspirin and Brillinta for 12 months 3. Staged PCI NICHOLS to LAD to mid to distal LAD.
[2025-01-03] MEDS: SODIUM CHLORIDE 0.9% 1,000 ML in EMPTY BAG 1 BAG IV SCH (19:52)
[2025-01-03] MEDS: FAMOTIDINE 20 MG TAB PO SCH (19:53)
[2025-01-03] MEDS: TICAGRELOR 90 MG TAB PO SCH (19:53)
[2025-01-04 07:24] LABS: Basophils % (A) 0 %; Eosinophils % (A) 0 %; HCT 45.1 % (39.0-53.0); HGB 14.6 gm/dL (13.0-17.5); Lymphocytes # (A) 1.4 k/uL (1.0-4.8); Lymphocytes % (A) 17 %; MCH 31.1 pg (25.0-35.0); MCHC 32.3 g/dL (31.0-37.0); MCV 96.2 fL (80.0-100.0); Mean Platelet Volume 8.1; Monocytes # (A) 0.6 k/uL (0-1.0); Monocytes % (A) 8 %; Neutrophils # (A) 6.1 k/uL (1.3-7.7); Neutrophils % (A) 73 %; Platelet Count 154 k/uL (150-450); RBC 4.69 m/uL (4.30-5.90); RDW 12.4 % (11.5-15.5); WBC 8.4 k/uL (3.8-10.6)
[2025-01-04 07:42] LABS: African American GFR (CKD) 82 (>60 ml/min/1.73 sqM); Anion Gap 8 mmol/L; Blood Urea Nitrogen 12 mg/dL (9-20); Calcium 9.3 mg/dL (8.4-10.2); Carbon Dioxide 21 mmol/L (22-30); Chloride 110 mmol/L (98-107); Glucose 114 mg/dL (74-99); Non-African American GFR(CKD) 71 (>60 ml/min/1.73 sqM); Potassium 4.5 mmol/L (3.5-5.1); Sodium 139 mmol/L (137-145)
[2025-01-04] MEDS: ATORVASTATIN 40 MG TAB PO SCH (08:24)
[2025-01-04] MEDS: ASPIRIN 81 MG PO SCH (08:24)
[2025-01-04 09:35] VITALS: RESP 20
--- NOTE | 2025-01-04 11:42 | CA ---
Transthoracic Echo Report Name: Woody Bob Age: 79 Gender: M : 1945 Exam Date: 01/03/2025 10:34 Exam Location: [facility] Ht (in): 69 Wt (lb): 200 Ordering Physician: Vickey Salmon DO Attending/Referring Phys: Slip Seat Coverer Kiana Rizzo RDCS Procedure CPT: Indications: ACS Cardiac Hx: Technical Quality: Good Contrast 1: Total Dose (mL): Contrast 2: Total Dose (mL): MEASUREMENTS (Male / Female) Normal Values 2D ECHO LV Diastolic Diameter PLAX 5.6 cm 4.2 - 5.9 / 3.9 - 5.3 cm LV Systolic Diameter PLAX 4.0 cm IVS Diastolic Thickness 1.0 cm 0.6 - 1.0 / 0.6 - 0.9 cm LVPW Diastolic Thickness 1.0 cm 0.6 - 1.0 / 0.6 - 0.9 cm LV Relative Wall Thickness 0.4 RV Internal Dim ED PLAX 3.2 cm Aortic Root Diameter 3.5 cm LA Systolic Diameter LX 4.7 cm 3.0 - 4.0 / 2.7 - 3.8 cm LV Diastolic Volume MOD 4C 140.6 cm??? LV Systolic Volume MOD 4C 82.7 cm??? LV Ejection Fraction MOD 4C 41.2 % LV Cardiac Index MOD 4C 1471.9 cm???/min???m??? LV Diastolic Length 4C 8.8 cm LV Systolic Length 4C 7.6 cm DOPPLER Mitral E Point Velocity 38.9 cm/s Mitral A Point Velocity 72.2 cm/s Mitral E to A Ratio 0.5 MV Deceleration Time 356.5 ms MV E' Velocity 3.4 cm/s Mitral E to MV E' Ratio 11.6 TR Peak Velocity 145.6 cm/s TR Peak Gradient 8.5 mmHg FINDINGS Left Ventricle Left ventricular ejection fraction is estimated at 45-50 %. Left ventricular wall thickness normal. Mid to basal inferior inferoseptal wall hypokinesia Right Ventricle Normal right ventricular size. Right ventricular systolic pressure within normal limits. Right Atrium Normal right atrial size. Hypermobile interatrial septum. Left Atrium Mildly increased left atrial diameter. Mitral Valve Mitral valve thickened. Mild prolapse of the posterior mitral valve leaflet. No mitral stenosis. Mild mitral regurgitation. Aortic Valve Trileaflet aortic valve. Tricuspid Valve Structurally normal tricuspid valve. No tricuspid stenosis. Trace to mild tricuspid regurgitation. Pulmonic Valve Structurally normal pulmonic valve. Moderate pulmonic regurgitation. No pulmonic stenosis. Pericardium No pericardial effusion. Aorta Normal size aortic root and proximal ascending aorta. CONCLUSIONS Left ventricular ejection fraction is estimated at 45-50 %. Mid to basal inferior inferoseptal wall hypokinesia. Mild LA dilatation Mild mitral regurgitation. Moderate pulmonic regurgitation. Previewed by: Dr Ash Overton (Electronically Signed) Final Date: 04 January 2025 11:42
[2025-01-04 11:55] VITALS: BP 122/75; PULSE 63; TEMP 97.9
[2025-01-04 14:20] VITALS: BMI 28.3
--- NOTE | 2025-01-04 14:57 | P.PN ---
Subjective Progress Note Date: 01/04/25 Reason for Consult (text): NSTEMI History of present illness: This is a 79-year-old male patient with past medical history of coronary artery disease with CABG 1 vessel in 1998 in the setting of an [place], AIDS, GERD. We have been asked to evaluate the patient for NSTEMI. Patient gives history of developing chest pain that started on Wednesday afternoon. It persisted until he went to bed and then went away. This started again at 245 on Wednesday but it was more severe. He was going across his upper chest and to the bilateral shoulders. Patient received baby aspirin and Nitropaste. He feels that the Nitropaste help the pain go away. He denies any pain at this time. He also had shortness of breath nausea without vomiting and cold sweats with the pain. His blood pressure readings are elevated but patient does not check his blood pressure at home. 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 Patient denies history of smoking and no alcohol abuse. His dad had history of [place]. Blood pressure 148/88, heart rate 56, pulse ox 97% on room air. Patient has been started on Cardizem drip. -EKG: Sinus rhythm with sinus arrhythmia. -Chest x-ray: No acute process -Laboratory studies: WBC 7.3, hemoglobin 14.4, platelet count 130. D-dimer 0.82. Potassium 4.7, CO2 20, BUN 22 creatinine 1.29. Troponin 0.554, 0.93, 2.1. Triglycerides 122, cholesterol 209, LDL 150, HDL 33. -Home cardiac medications: Aspirin 325 mg daily. 01/04 Patient seen and examined. Yesterday, patient underwent cardiac catheterization which revealed proximal LAD 50%, mid LAD 100%, ostial circumflex 40%, OM1 95%, mid to distal LAD 90%, PDA 100% stenosis. Patient subsequently underwent PCI of the OM1 with MARK with additional findings of 90% plaque in the ostial circumflex status post PCI of the left main into the circumflex with MARK, postdilated with noncompliant balloon. Patient was to continue aspirin and Brilinta for 12 months. Blood pressure 122/75, heart rate 63, pulse ox 95% on room air. Repeat blood work reveals CBC unremarkable. Sodium 139, potassium 4.5, BUN 12 and creatinine 1.02. Triglycerides 122, cholesterol 209, LDL 150, HDL 33. Echocardiogram reveals EF of 45 to 50%. Mid to basal inferior inferior septal wall hypokinesia. Mild LA dilatation. Mild mitral regurgitation. Moderate pulmonic regurgitation. Results of echocardiogram reviewed with the patient. Physical examination: Gen: This is a 79-year-old male in no acute distress VS: reviewed HEENT: Head is atraumatic, normocephalic. Pupils equal, round. Sclerae is anicteric. NECK: Supple. No JVD. LUNGS: Clear to auscultation. No wheezes or rhonchi. No intercostal retractions. HEART: Regular rate and rhythm. No murmur. ABDOMEN: Soft No tenderness. EXTREMITIES: No pedal edema. No calf tenderness. NEUROLOGICAL: Patient is awake, alert and oriented x3. Assessment: NSTEMI, S/p PCI LM into circumflex and OM1 01/03 Hypertension History of coronary artery disease with previous CABG x 1 vessel in 1998 AIDS GERD CAD with residual NICHOLS to LAD disease Plan: Patient did have periprocedural chest pain related to ostial circumflex thrombus which improved last night. Has not had reoccurence. NICHOLS to LAD staged intervention can be performed outpt in 1-4 weeks. Continue patient on aspirin 81 mg daily, atorvastatin 40 mg daily, losartan 25 mg daily, Lopressor 25 mg twice daily Continue patient on Brilinta 90 mg twice daily Patient is cleared for discharge from cardiology perspective with nitro as needed for chest pain Nurse practitioner note has been reviewed, I agree with documented findings and plan of care. Patient was seen and examined. Objective - Vital Signs Vital signs: Vital Signs Temp 97.9 F 01/04/25 11:53 Pulse 63 01/04/25 11:53 Resp 20 01/04/25 11:53 BP 122/75 01/04/25 11:53 Pulse Ox 95 01/04/25 11:53 FiO2 Intake & Output 01/03/25 01/04/25 01/04/25 18:59 06:59 18:59 Intake Total 1390 360 Balance 1390 360 Weight 90.718 kg 87.1 kg 87.1 kg Intake: IV 1150 Oral 240 360 Other: Voiding Method Urinal # Voids 1 1 1 - Labs CBC & Chem 7: 01/04/25 07:09 01/04/25 07:09 Labs: Abnormal Lab Results - Last 24 Hours (Table) 01/04/25 Range/Units 07:09 Chloride 110 H (98-107) mmol/L Carbon Dioxide 21 L (22-30) mmol/L Glucose 114 H (74-99) mg/dL
--- NOTE | 2025-01-04 23:32 | P.DS ---
Providers Date of admission: 01/02/25 19:49 Attending physician: Girish Queen MD Consults: 01/02/25 19:48 Consult Physician Urgent Consulting Provider: John Jackman Consult Reason/Comments: nstemi Do you want consulting provider notified?: Yes 01/03/25 15:30 Consult Physician Routine Consulting Provider: [facility] Consult Reason/Comments: Post Interventional patient Do you want consulting provider notified?: Already Contacted Primary care physician: Stated None Hospital Course: History of present illness. This is a pleasant 79 years old male who presents because of chest pain in the middle of the chest radiating. Left side and left arm, patient had elevated troponin on admission with no EKG changes. Patient evaluated by cardiology team who diagnosed him with a non-STEMI. He underwent cardiac cath and PCI placed to the proximal OM1 and PCI of the left main to the left circumflex artery. After the procedure patient feels much better today with no chest pain or dyspnea. Patient already dressed up sitting in bed ready to go home. Denies any other new complaint. at bedside and she is agreeable. Patient also cleared for discharge by sausage maker. Patient will be discharged on dual antiplatelet therapy with aspirin and Brilinta and risk of bleeding including but not limited to the brain bleed is explained for him in details and he verbalized understanding acceptance. Patient also will be discharged on lisinopril metoprolol and Lipitor. Problems and management plan were discussed with the patient and he verbalized understanding and acceptance Patient was found stable and can be discharged home in guarded prognosis however he needs follow-up as an outpatient. Patient was instructed to follow up with PCP within one week and patient agrees Patient was instructed to follow-up with Dr. Salinas sausage maker in 1 week after discharge and he agrees Physical exam Gen: patient is a AAOx3, no distress CVS: S1-S2, RRR, no murmur Lungs: B/L CTA, no wheezing Abdomen: soft, no distention, no tenderness, positive bowel sounds Extremity: no leg edema or induration Time spent more than 35 minutes Plan - Discharge Summary Discharge Rx Participant: No New Discharge Prescriptions: New Aspirin 81 mg PO DAILY #30 tab Ticagrelor [Brilinta] 90 mg PO BID #60 tab Metoprolol Tartrate [Lopressor] 25 mg PO BID #60 tab Losartan [Cozaar] 25 mg PO DAILY #30 tab Atorvastatin [Lipitor] 40 mg PO DAILY #30 tab Nitroglycerin Sl Tabs [Nitrostat] 0.4 mg SUBLINGUAL Q5M PRN #20 tab PRN Reason: Chest Pain Continue Omeprazole 20 mg PO DAILY [place]-3/Dha/Epa/Fish Oil [Fish Oil 1,000 mg Softgel] 1 cap PO DAILY Ascorbic Acid [Vitamin C] 1,000 mg PO DAILY L.acidoph,Paracasei, B.lactis [Probiotic] 1 cap PO DAILY Bictegrav/Emtricit/Tenofov Ala [Biktarvy 50-200-25 mg Tablet] 1 tab PO DAILY Discontinued Aspirin EC [Ecotrin] 325 mg PO DAILY Discharge Medication List Omeprazole 20 mg PO DAILY 06/29/17 [History] Ascorbic Acid [Vitamin C] 1,000 mg PO DAILY 01/02/25 [History] Bictegrav/Emtricit/Tenofov Ala [Biktarvy 50-200-25 mg Tablet] 1 tab PO DAILY 01/02/25 [History] L.acidoph,Paracasei, B.lactis [Probiotic] 1 cap PO DAILY 01/02/25 [History] [place]-3/Dha/Epa/Fish Oil [Fish Oil 1,000 mg Softgel] 1 cap PO DAILY 01/02/25 [History] Aspirin 81 mg PO DAILY #30 tab 01/04/25 [Rx] Atorvastatin [Lipitor] 40 mg PO DAILY #30 tab 01/04/25 [Rx] Losartan [Cozaar] 25 mg PO DAILY #30 tab 01/04/25 [Rx] Metoprolol Tartrate [Lopressor] 25 mg PO BID #60 tab 01/04/25 [Rx] Nitroglycerin Sl Tabs [Nitrostat] 0.4 mg SUBLINGUAL Q5M PRN #20 tab 01/04/25 [Rx] Ticagrelor [Brilinta] 90 mg PO BID #60 tab 01/04/25 [Rx] Follow up Appointment(s)/Referral(s): Kev Salinas DO [STAFF PHYSICIAN] - 1 Week (please call office when open to make follow appointment) None,Stated [Primary Care Provider] - 1-2 days Patient Instructions/Handouts: *Surgery [facility] - After Heart Catheterization - Power Transformer Inspector Instructions, Heart Healthy Diet (DC) Activity/Diet/Wound Care/Special Instructions: Heart healthy diet Activity is restricted till you see your doctor Discharge/Stand Alone Forms: Who Do I Call?, PH Area PCPs Discharge Disposition: HOME SELF-CARE
== END 2025-01-04 17:04 | disposition home or self-care (01) | DRG 322 ==
LOC: EC 16:15 → 3SCARD 19:49
PROVIDERS: ADMIT Internal Medicine; ATTEND Internal Medicine
PROC: B2131ZZ Fluoroscopy of Multiple Coronary Artery Bypass Grafts using Low Osmolar Contrast (ICD-10-PCS; 2025-01-03)
PROC: 027134Z Dilation of Coronary Artery, Two Arteries with Drug-eluting Intraluminal Device, Percutaneous Approach (ICD-10-PCS; principal; 2025-01-03 13:00)
PROC: B240ZZ3 Ultrasonography of Single Coronary Artery, Intravascular (ICD-10-PCS; 2025-01-03 13:00)
PROC: B2111ZZ Fluoroscopy of Multiple Coronary Arteries using Low Osmolar Contrast (ICD-10-PCS; 2025-01-03 13:00)
PROC: B2181ZZ Fluoroscopy of Left Internal Mammary Bypass Graft using Low Osmolar Contrast (ICD-10-PCS; 2025-01-03 13:00)
DX: I21.4 Non-ST elevation (NSTEMI) myocardial infarction (principal); B20 Human immunodeficiency virus [HIV] disease; I10 Essential (primary) hypertension; F32.A Depression, unspecified; I71.20 Thoracic aortic aneurysm, without rupture, unspecified; E78.5 Hyperlipidemia, unspecified; Z95.1 Presence of aortocoronary bypass graft; I25.10 Atherosclerotic heart disease of native coronary artery without angina pectoris; K21.9 Gastro-esophageal reflux disease without esophagitis; I25.2 Old myocardial infarction; Z79.82 Long term (current) use of aspirin; Z82.49 Family history of ischemic heart disease and other diseases of the circulatory system; Z90.79 Acquired absence of other genital organ(s); Z88.0 Allergy status to penicillin; Z90.49 Acquired absence of other specified parts of digestive tract
CPT/HCPCS: 36415; 71046; 71275; 80048; 80053; 80061; 80069; 83036; 83735; 83880; 84484; 85025; 85379; 85610; 85730; 92978; 93005; 93306; 93459; 96365; 96366; 96375; 99291

== ENCOUNTER 2025-02-08 11:11 | Day surgery (SDC) | payer MEDICARE ==
[2025-01-29 16:10] VITALS: BMI 27.3
[~2025-02-08 11:11] MED LIST: ALPRAZolam 0.25 MG TAB PO PRN; ALPRAZolam 0.5 MG TAB PO PRN; NITROGLYCERIN SL TABS 0.4 MG TAB SUBLINGUAL PRN
[2025-02-08] MEDS: SODIUM CHLORIDE 0.9% 1,000 ML in EMPTY BAG 1 BAG IV SCH (11:35)
[2025-02-08] MEDS: ASPIRIN 325 MG TAB PO STA (11:35)
[2025-02-08] MEDS: IV FLUID CONTINUATION 1,000 ML IV ONE ×2 (11:38→12:49)
[2025-02-08 11:42] VITALS: RESP 16; TEMP 97.8
[2025-02-08] MEDS: fentaNYL (PF) 50 MCG/1 ML VIAL IVP ONE (13:59)
[2025-02-08] MEDS: MIDAZOLAM 2 MG/2 ML VIAL IVP ONE (13:59)
[2025-02-08] MEDS: LIDOCAINE 1% INJ 10MG/ML (20 ML MDV) SQ ONE (14:00)
[2025-02-08] MEDS: VERAPAMIL SYRINGE (5 MG/10 ML) INTRAARTER ONE (14:07)
[2025-02-08] MEDS: HEPARIN SODIUM 1,000 UN/ML (10ML VL) IV ONE (14:07)
[2025-02-08] MEDS: NITROGLYCERIN 1000MCG/10ML SYRINGE INTRACORON ONE (14:18)
[2025-02-08] MEDS: IOPAMIDOL-370 100ML BTL INJ ONE (14:30)
[2025-02-08] MEDS: HEPARIN SODIUM,PORCINE 10,000 UNIT in SODIUM CHLORIDE 0.9% 1,000 ML IRRIGATION PRN (14:31)
[2025-02-08] MEDS: HEPARIN SODIUM,PORCINE (1 ML) 2,500 UNIT in SODIUM CHLORIDE 0.9% 250 ML IRRIGATION PRN (14:32)
[2025-02-08] MEDS ORDERED: RX INFO: IV CONTRAST WAS GIVEN 1 EACH MISC MISCELLANE PRN (14:50)
[2025-02-08] MEDS ORDERED: ZOLPIDEM 5 MG TAB PO PRN (14:50)
[2025-02-08] MEDS ORDERED: ATROPINE SULFATE 0.1 MG/ML 10ML SYRINGE IV PRN (14:50)
[2025-02-08] MEDS ORDERED: MAG HYDROX/AL HYDROX/SIMETH 30 ML CUP PO PRN (14:50)
--- NOTE | 2025-02-08 15:02 | P.PRCINT ---
Percutaneous Coronary Int. - Percutaneous Coronary Intervention Percutaneous Coronary Intervention: PROCEDURES PERFORMED: NICHOLS to LAD coronary angiography, ultrasound guided arterial access, PCI mid LAD with 2.25 x 15mm Xience MARK post dilated with a 2.25mm NC balloon INDICATION: Staged PCI CONSENT:I have discussed the risks, benefits and alternative therapies for the above-mentioned procedure and for both sedation/analgesia as well as necessary blood product administration, if indicated, as they pertain to this patient. The patient has indicated understanding and acceptance of the risks and procedures discussed. PROCEDURE: After the risks, benefits and alternatives of the above mentioned procedure explained in detail with the patient, informed consent was obtained. Patient was taken to the catheterization lab and prepped and draped in usual fashion. Ultrasound guidance was used to assess for arterial access. 1% lidocaine was used to anesthetize the left radial artery. A 6-Angolan sheath was placed in the left radial artery using modified Seldinger technique and ultrasound guidance. NICHOLS to LAD angiography was performed with a 6 Angolan SHARON guide catheter. The decision was made to perform PCI of the mid LAD. Heparin was given. A 0.014 BMW wire was advanced in the distal LAD. Predilation was performed with a 2.0 mm balloon. Next a 2.25 x 15 mm drug-eluting stent was placed in the mid LAD. The stent was postdilated with a 2.25 noncompliant balloon. Final angiograms were performed. Preintervention there was 90% stenosis and FARZANA-3 flow and postintervention there was less than 10% stenosis with FARZANA-3 flow. The radial sheath was removed and a TR band was placed with hemostasis achieved. The patient tolerated the procedure well. Patient was transported back to the post catheterization holding area in stable condition. Conscious Sedation: Patient was monitored under the direct supervision of myself for conscious sedation using Versed and fentanyl for a total duration of 31 minutes HEMODYNAMICS: Ao: 102/76 SELECTIVE CORONARY ARTERIOGRAPHY: NICHOLS to LAD: The NICHOLS is patent. Distal to the LAD anastomosis there is a mid LAD 90% stenosis at the level of a very small caliber diagonal branch. There is otherwise mild luminal irregularities. FINAL IMPRESSION: 1. S/p staged PCI mid LAD with 2.25 x 15mm Xience MARK post dilated with a 2.25mm NC balloon PLAN: 1. Aggressive risk factor modification per most recent ACC/AHA guidelines. 2. Continue dual antiplatelets with aspirin and Brillinta for 12 months.
[2025-02-08 18:38] VITALS: BP 121/68; PULSE 57
[2025-02-08] MEDS ORDERED: TICAGRELOR 90 MG TAB PO SCH (21:00)
[2025-02-08] MEDS ORDERED: METOPROLOL TARTRATE 25 MG TAB PO SCH (21:00)
[2025-02-09] MEDS ORDERED: ASCORBIC ACID 500 MG TAB PO SCH (09:00)
[2025-02-09] MEDS ORDERED: NON FORMULARY DRUG (Omega-3/Dha/Epa/Fish Oil [Fish Oil 1,000 Mg Softgel] 1 EACH Capsule) PO SCH (09:00)
[2025-02-09] MEDS ORDERED: NON FORMULARY DRUG (Bictegrav/Emtricit/Tenofov Ala [Biktarvy 50-200-25 Mg Tablet] 1 EACH T PO SCH (09:00)
[2025-02-09] MEDS ORDERED: NON FORMULARY DRUG (L.Acidoph,Paracasei, B.Lactis [Probiotic] 1 EACH Capsule) PO SCH (09:00)
[2025-02-09] MEDS ORDERED: NON FORMULARY DRUG (Omeprazole [Omeprazole] 20 MG Capsule.Dr) PO SCH (09:00)
[2025-02-09] MEDS ORDERED: ATORVASTATIN 40 MG TAB PO SCH (09:00)
[2025-02-09] MEDS ORDERED: ASPIRIN 81 MG PO SCH (09:00)
== END 2025-02-08 18:10 | disposition home or self-care (01) ==
LOC: CATHCVL 11:11
PROVIDERS: ATTEND Internal Medicine
DX: I25.10 Atherosclerotic heart disease of native coronary artery without angina pectoris (principal); I25.2 Old myocardial infarction; Z95.1 Presence of aortocoronary bypass graft; I10 Essential (primary) hypertension; I42.9 Cardiomyopathy, unspecified; E78.2 Mixed hyperlipidemia; I71.20 Thoracic aortic aneurysm, without rupture, unspecified; Z79.82 Long term (current) use of aspirin; Z79.02 Long term (current) use of antithrombotics/antiplatelets; Z79.899 Other long term (current) drug therapy; Z82.49 Family history of ischemic heart disease and other diseases of the circulatory system; Z88.0 Allergy status to penicillin
CPT/HCPCS: C9600; C1769; C1887; C1894; C1725 ×2; J2250; J1644 ×3; J2003; Q9967; J3010; J2305